=== PATIENT | female | born 1940 | race Caucasian/White ===

== ENCOUNTER 2017-09-07 10:44 | Emergency (ER) | payer MEDICARE ==
[2017-09-07] MEDS ORDERED: Ketorolac Tromethamine 30 MG/ML VIAL ONE (13:27)
== END 2017-09-07 13:57 | disposition home or self-care (01) ==
LOC: ERS 10:44
DX: B02.9 Zoster without complications (principal); I10 Essential (primary) hypertension; K58.9 Irritable bowel syndrome, unspecified; F32.9 Major depressive disorder, single episode, unspecified
CPT/HCPCS: 96372; J1885

== ENCOUNTER 2017-12-27 11:36 | Emergency (ER) | payer MEDICARE ==
--- NOTE | 2017-12-27 12:47 | RAD ---
2 VIEWS CHEST: Date: 12/27/17 HISTORY: Cough x1 week. COMPARISON: 05/11/12. FINDINGS: Normal cardiac silhouette. Pulmonary vessels and hilum are normal. Costophrenic angles are clear. Hyp erinflation. Chronic changes are suspected, without consolidation or mass. No pneumothorax or osseous abnormalities. IMPRESSION: No acute cardiopulmonary process. POS: H
== END 2017-12-27 12:37 | disposition home or self-care (01) ==
LOC: ERS 11:36
DX: J18.9 Pneumonia, unspecified organism (principal); I10 Essential (primary) hypertension; F32.9 Major depressive disorder, single episode, unspecified
CPT/HCPCS: 71046; 87804

== ENCOUNTER 2018-01-02 13:46 | Inpatient (IN) | payer MEDICARE ==
--- NOTE | 2018-01-02 14:35 | RAD ---
CHEST 1 VIEW: HISTORY: Cough. COMPARISON: Chest radiograph 05/11/12. FINDINGS: There is a right basilar airspace opacity. The image is limited due to leftward rotation. There is also left basilar opacity and obscuration of left hemidiaphragm. No pneumothorax. IMPRESSION: Findings suggesting bilateral lower lobe pneumonia which is new from the comparison examination. Fol lowup recommended. POS: [facility]
[2018-01-02 14:42] LABS: Mean Corpuscular HGB CONC 32.6 g/dL (32.0-36.0); Mean Corpuscular Hemoglobin 30.3 pg (27.0-31.0); Mean Corpuscular Volume 92.9 fl (81.0-99.0); Platelet Count 290 thou/uL (130-400); Red Blood Cell (RBC) Count 4.29 mill/uL (4.20-5.40); White Blood Cell (WBC) Count 16.9 thou/uL (4.8-10.8)
[2018-01-02 15:05] LABS: ALT (SGPT) 26 U/L (8-55); AST (SGOT) 26 U/L (5-34); Albumin 3.1 g/dL (3.4-4.8); Alkaline Phosphatase 56 U/L (40-150); Anion Gap 13 mmol/L (10-20); BUN (Urea Nitrogen) 15 mg/dL (9.8-20.1); Bilirubin, Total 0.5 mg/dL (0.2-1.2); Calc. Creatinine Clearance 0 mL/min (70-130); Calcium 8.7 mg/dL (7.8-10.44); Carbon Dioxide 27 mmol/L (23-31); Chloride 98 mmol/L (98-107); Estimated GFR-MDRD 70; Globulin 3.1 g/dL (2.4-3.5); Glucose 239 mg/dL (83-110); Lipase 16 U/L (8-78); Magnesium 1.9 mg/dL (1.6-2.6); Protein, Total 6.2 g/dL (6.0-8.3); Sodium 134 mmol/L (136-145)
[2018-01-02 15:07] LABS: CKMB 1.1 ng/mL (0-6.6)
[2018-01-02 15:11] LABS: Band 12 % (5-11); Lymphocytes 1 % (21-51); MDiff Complete? YES; Monocytes 3 % (0-10); Neutrophil 84 % (42-75); PLT Morphology Comment Appears Adequate
[2018-01-02] MEDS ORDERED: Azithromycin 500 MG VIAL ONE (15:28)
[2018-01-02] MEDS ORDERED: cefTRIAXone\\ROCEPHIN 2 GM VIAL ONE (15:29)
[2018-01-02 15:37] LABS: Bilirubin Small (Negative); Blood, Urine Negative (Negative); Clarity CLOUDY (Clear); Glucose, Urine (Dipstick) Negative (Negative); Leukocyte Small (Negative); Nitrite Negative (Negative); Protein, Urine (Dipstick) 30 mg/dL (Neg-Trace); Specific Gravity, Urine 1.028 (1.002-1.036)
[2018-01-02 15:40] LABS: Bacteria/HPF None Seen HPF (None Seen); Pathc Cast-AUWi Flag 1.59 (0-2.49)
[2018-01-02 15:52] LABS: Hyaline Casts/LPF 0-3 HYALINE CAST LPF (0-3 Hyaline); Renal Epithelial None Seen HPF (0-3); Transitional Epithelial NONE SEEN HPF (0-3)
[2018-01-02] MEDS ORDERED: Cefepime 2 GM, Syringe 2.5 ML in Sodium Chloride 0.9% 10 ML SLOW IVP SCH (16:15)
[2018-01-02] MEDS ORDERED: Ondansetron ODT 4 MG TAB PO PRN (16:21)
[2018-01-02] MEDS ORDERED: Milk Of Magnesia 30 ML UDCUP PO PRN (16:21)
[2018-01-02] MEDS ORDERED: Calcium Carbonate 500 MG ChewTAB PO PRN (16:21)
[2018-01-02] MEDS ORDERED: Loperamide HCl 2 MG CAP PO PRN (16:21)
[2018-01-02] MEDS ORDERED: Ondansetron PF 4 MG/2 ML Vial IVP PRN (16:21)
[2018-01-02] MEDS ORDERED: Senokot 8.6 MG TAB PO PRN ×2 (16:21→23:09)
[2018-01-02] MEDS ORDERED: Nitroglycerin 0.4 MG TAB (25 Tab Bottle) PO PRN (16:26)
[2018-01-02] MEDS ORDERED: Cefepime 2 GM in Sodium Chloride 0.9% 100 ML IVPB SCH (16:30)
[2018-01-02] MEDS ORDERED: Acetaminophen 500 MG TAB ONE (16:49)
[2018-01-02 18:00] LABS: Troponin I 0.076 ng/mL (< 0.028)
--- NOTE | 2018-01-02 18:18 | HP ---
DATE OF ADMISSION: 01/02/2018 PRIMARY CARE PHYSICIAN: Dr. Barnes. CHIEF COMPLAINT: Cough and shortness of breath. HISTORY OF PRESENT ILLNESS: The patient is a 77-year-old female, who presented to the emergency room approximately 1 week ago with fever, measuring up to 102-103 degree along with cough and congestion of 1 week duration. She had several family members who were recently sick. She also complained of c ough productive of thick whitish phlegm. She felt generally weak and fatigued. She was started on a zithromycin and Medrol Dosepak and was subsequently discharged. However, her symptoms progressively got worse for which she presented to the emergency room. Chest x-ray today showed bilateral lower lo be pneumonia when compared to last week. She received cefepime and Levaquin in the emergency room. She also complains of generalized maculopapular rash that started over the last 2 days. She thinks i t may have been started by azithromycin. PAST MEDICAL HISTORY: 1. Depression: 2. History of gestational diabetes. 3. Hypertension. PAST SURGICAL HISTORY: 1. Appendectomy. 2. Hysterectomy. ALLERGIES: PENICILLIN, SULFA, CODEINE, and possible AZITHROMYCIN. CURRENT HOME MEDICATIONS: The patient is unable to recall all of her home medications. She takes li sinopril, Prozac, and Protonix. FAMILY HISTORY: Negative for premature coronary artery disease. SOCIAL HISTORY: She currently lives at home with her . No smoking, alcohol or drug use. She makes her own decision with the help of her . She is FULL CODE. REVIEW OF SYSTEMS: The following complete review of systems was negative, unless otherwise mentioned in the HPI or below: Constitutional: Weight loss or gain, ability to conduct usual activities. Sk in: Rash, itching. Eyes: Double vision, pain. ENT/Mouth: Nose bleeding, neck stiffness, pain, te nderness. Cardiovascular: Palpitations, dyspnea on exertion, orthopnea. Respiratory: Shortness of breath, wheezing, cough, hemoptysis, fever or night sweats. Gastrointestinal: Poor appetite, abdom inal pain, heartburn, nausea, vomiting, constipation, or diarrhea. Genitourinary: Urgency, frequenc y, dysuria, nocturia. Musculoskeletal: Pain, swelling. Neurologic/Psychiatric: Anxiety, depressio n. Allergy/Immunologic: Skin rash, bleeding tendency. PHYSICAL EXAMINATION: VITAL SIGNS: Showed temperature 98.9, respirations 20, pulse rate of 120 with a blood pressure 126/5 4 with O2 saturation 92% on room air. GENERAL: A 77-year-old female, ill appearing. Feels generally weak. HEENT: Head atraumatic, normocephalic. Sclerae are anicteric. Moist mucous membrane. No oral lesi on except for some erythema over the posterior pharynx. NECK: Supple, no JVD appreciated. No carotid bruit. LUNGS: Showed bibasilar rales and rhonchi. No wheezing appreciated. Lungs were symmetrical. HEART: S1, S2 present. Regular rate and rhythm, tachycardic. No murmur, rubs or gallops. ABDOMEN: Soft, nontender, bowel sounds present. EXTREMITIES: No edema or calf tenderness. NEUROLOGIC: Grossly nonfocal, moves all four extremities. PSYCHIATRIC: Alert, awake, oriented x3. SKIN: Faint maculopapular rash, which is generalized. Per patient report, the rash has improved ove r the last 2 days while on Benadryl. LYMPH NODES: No palpable lymph nodes in the neck. LABORATORY AND X-RAY FINDINGS: CBC showed WBC 16.9 with hemoglobin 13, hematocrit 39.9, platelet cou nt 290 with 12% bandemia. Chemistries showed sodium 134, potassium 4, chloride 98, bicarbonate 27, B UN 15, creatinine 0.8, glucose of 239. Lactic acid 2.4. Troponin was 0.030. CK-MB was 1.1. Influenza testing was negative last week. Chest x-ray by my review as discussed above. Telemetry monitoring by my review showed sinus tachycardia. EKG by my review showed sinus rhythm with left ventricular hypertrophy. IMPRESSION: 1. Sepsis secondary to community-acquired pneumonia. Please note that patient failed outpatient the rapy. 2. Generalized skin rash, probably secondary to allergic reaction to AZITHROMYCIN, improving with an tihistamine. 3. Hypertension. 4. Hyperglycemia, probably secondary to recent steroid use. Rule out diabetes mellitus, type 2. 5. Chronic kidney disease, stage 2. 6. Lactic acidosis, probably secondary to sepsis. 7. Elevated troponins, probably secondary to sinus tachycardia. 8. Hypertensive heart disease on the EKG. 9. Dehydration. PLAN: The patient will be monitored on the telemetry unit due to sepsis with elevated cardiac enzyme s. We will check legionella and strep pneumoniae urinary antigen. The patient will continue Levaqui n and cefepime. If the patient does not show improvement in the next 24 hours, we will consider pulm onary consultation. We will resume home medications once confirmed. IV hydration. Echocardiogram w ill be obtained. We will check hemoglobin A1c. Plan of care was discussed with the patient in detail. She stated understanding.
[2018-01-02 18:26] LABS: Lactic Acid 1.5 mmol/L (0.5-2.2)
[2018-01-02] MEDS ORDERED: Famotidine 20 MG TAB PO SCH (21:00)
[2018-01-02 21:35] LABS: Troponin I 0.086 ng/mL (< 0.028)
[2018-01-02] MEDS: guaiFENesin ER 600 MG TAB PO SCH (22:24)
[2018-01-02] MEDS: Sodium Chloride 0.9% 1,000 ML IV SCH (22:25)
[2018-01-02 23:12] LABS: Legionella Urinary Ag Negative (Negative); Strep pneumo Urine Ag NEGATIVE (NEGATIVE)
[2018-01-03] MEDS: Acetaminophen 325 MG TAB PO PRN ×2 (04:30→21:02)
[2018-01-03] MEDS: Cefepime 2 GM, Syringe 2.5 ML in Sodium Chloride 0.9% 10 ML SLOW IVP SCH ×2 (05:20→17:17)
[2018-01-03] MEDS: Sodium Chloride 0.9% 1,000 ML IV SCH ×2 (05:33→23:12)
[2018-01-03 05:41] LABS: Hemoglobin A1c 5.8 % (4.0-6.0)
[2018-01-03 05:56] LABS: Albumin 2.4 g/dL (3.4-4.8); Anion Gap 12 mmol/L (10-20); BUN (Urea Nitrogen) 10 mg/dL (9.8-20.1); BUN/Creatinine Ratio 14.08; Calc. Creatinine Clearance 69 mL/min (70-130); Calcium 7.7 mg/dL (7.8-10.44); Carbon Dioxide 20 mmol/L (23-31); Chloride 105 mmol/L (98-107); Estimated GFR-MDRD 80; Glucose 148 mg/dL (83-110); Phosphorus 2.7 mg/dL (2.3-4.7); Potassium 3.4 mmol/L (3.5-5.1); Sodium 134 mmol/L (136-145)
[2018-01-03 06:02] LABS: Troponin I 0.071 ng/mL (< 0.028)
[2018-01-03 06:08] LABS: Band 10 % (5-11); Lymphocytes 3 % (21-51); MDiff Complete? YES; Mean Corpuscular HGB CONC 32.7 g/dL (32.0-36.0); Mean Corpuscular Hemoglobin 30.6 pg (27.0-31.0); Mean Corpuscular Volume 93.8 fl (81.0-99.0); Monocytes 1 % (0-10); Neutrophil 86 % (42-75); Platelet Count 213 thou/uL (130-400); RBC Distribution Width 12.1 % (11.5-14.5); Red Blood Cell (RBC) Count 3.91 mill/uL (4.20-5.40); White Blood Cell (WBC) Count 16.5 thou/uL (4.8-10.8)
[2018-01-03] MEDS ORDERED: Aspirin 81 mg Enteric Coated Tablet PO SCH (09:00)
[2018-01-03] MEDS: guaiFENesin ER 600 MG TAB PO SCH ×2 (09:46→21:02)
[2018-01-03] MEDS: Saccharomyces boulardii 250 MG CAP PO SCH (09:48)
[2018-01-03] MEDS ORDERED: hydrALAZINE 20 MG/ML VIAL SLOW IVP PRN (09:55)
[2018-01-03] MEDS ORDERED: FLUoxetine HCl 20 MG CAP PO SCH (10:00)
[2018-01-03] MEDS: diphenhydrAMINE 12.5 MG/5 ML UDCUP PO PRN ×2 (11:59→23:48)
--- NOTE | 2018-01-03 19:09 | CON ---
DATE OF CONSULTATION: 01/03/2018 HISTORY: This patient is a pleasant 77-year-old woman who presented with fevers and chills. The patient has a history of palpitations. She had undergone evaluation by Dr. Mathur. She states on nearly nightly basis, she will notice having rapid palpitations. The patient denies having any chest discomfort. The patient once again was noted to have a rapid heart rate. The patient denies having any chest discomfort. PAST MEDICAL HISTORY 1. Hypertension. 2. Depression. 3. Irritable bowel syndrome. PAST SURGICAL HISTORY: Appendectomy, hysterectomy,and cholecystectomy. ALLERGIES: PENICILLIN, SULFA, CODEINE and AZITHROMYCIN. FAMILY HISTORY: There is a positive family history of coronary artery disease. SOCIAL HISTORY: Nonsmoker. MEDICATIONS: Protonix 1 tablet daily,and lisinopril 20 daily. REVIEW OF SYSTEMS: A 10-point systems is otherwise unremarkable. No history of easy bruising or bleeding, bright red blood per rectum. PHYSICAL EXAMINATION: GENERAL: This is an elderly woman in no acute distress. Blood pressure is 99/ 49. NECK: No jugular venous distention. LUNGS: Have a few crackles in the bases. HEART: Regular rate and rhythm, normal S1, S2, no murmurs. ABDOMEN: Nondistended. EXTREMITIES: Showed no edema. SKIN: Warm and dry. NEUROLOGIC: Nonfocal. VASCULAR: Radial pulses are 2+. LABORATORY DATA: Sodium 134, potassium 3.4, chloride 105, bicarbonate 20, BUN 10, creatinine is 0.71, glucose 148. Troponin is 0.071. Her white blood count 16.5, hemoglobin 12.0, hematocrit 36.7, platelets are 213. Her EKG on admission revealed normal sinus rhythm with a mild left ventricular hypertrophy. Her awake overnight monitor revealed atrial fibrillation/flutter with a rapid ventricular rate. IMPRESSION: 1. Proximal atrial fibrillation/flutter. 2. Pneumonia. 3. Hypertension. 4. Depression. This patient has paroxysmal atrial fibrillation/flutter. The patient has a CHADS-VASc score of 3. The patient will need to be on chronic anticoagulation therapy to lower her thromboembolic risk. The patient has no obvious contraindications. From a cardiac standpoint, we will try to maintain sinus rhythm with beta obdulio therapy. We will switch from Cardizem to Lopressor. We will follow this patient with you through her hospitalization. BO
[2018-01-03] MEDS ORDERED: Potassium Chloride 20 MEQ TAB PO SCH (19:45)
[2018-01-03] MEDS ORDERED: Metoprolol Tartrate 25 MG TAB PO SCH (21:00)
[2018-01-03] MEDS: Apixaban 5 MG TAB PO SCH (21:01)
--- NOTE | 2018-01-03 22:12 | PDOC.PN ---
- Subjective Encounter Start Date: 01/03/18 Encounter Start Time: 20:30 Patient seen and examined. No new complaints. No overnight events. Afib earlier today. Feels slightly better. Some cough - dry - Objective Resuscitation Status: Resuscitation Status FULL:Full Resuscitation MAR Reviewed: Yes Vital Signs & Weight: Vital Signs (12 hours) Temp Pulse Resp BP BP 01/03/18 16:00 100.2 F H 80 18 109/55 L 01/03/18 12:00 99.3 F 85 16 99/49 L Weight Admit Weight 142 lb Weight 142 lb I&O: 01/02/18 01/03/18 01/04/18 06:59 06:59 06:59 Intake Total 993 Output Total 600 Balance 393 Result Diagrams: 01/03/18 04:47 01/03/18 04:47 EKG Reviewed by me: Yes (Tele SR/ Afib earlier) Phys Exam - Physical Examination Constitutional: NAD Neck: no JVD Respiratory: no wheezing, no rhonchi Bibasilar rales, Symmetrical Cardiovascular: RRR, no rub no heaves/pulsations Gastrointestinal: soft, non-tender, no distention, positive bowel sounds Musculoskeletal: no edema Neurological: non-focal, normal sensation, moves all 4 limbs Psychiatric: A&O x 3 Dx/Plan - Plan IMPRESSION: 1. Sepsis secondary to community-acquired pneumonia. 2. New onset Afib with intermittent RVR 3. Hypertension. 4. Impaired glucose tolerance 5. Chronic kidney disease, stage 2. 6. Lactic acidosis, probably secondary to sepsis. 7. Elevated troponins, probably secondary to demand ischemia. 8. Hypertensive heart disease on the EKG. 9. Dehydration. PLAN: * Cardio input appreciated * Anticoag started * Started on betablockers for rate control * Cont Atbx * Cont current meds as below Laboratory Tests 01/02/18 01/02/18 01/03/18 17:08 17:08 04:47 Hemoglobin A1c 5.8 Troponin I Ur L.pneumophila Ag Negative Ur Strep pneumoniae Ag NEGATIVE 01/03/18 04:47 Hemoglobin A1c Troponin I 0.071 H Ur L.pneumophila Ag Ur Strep pneumoniae Ag Review of Systems - Review of Systems Cardiovascular: negative: chest pain, palpitations, orthopnea, paroxysmal nocturnal dyspnea, edema, light headedness Gastrointestinal: negative: Nausea, Vomiting, Abdominal Pain, Diarrhea, Constipation, Melena, Hematochezia - Medications/Allergies Allergies/Adverse Reactions: Allergies Allergy/AdvReac Type Severity Reaction Status Date / Time azithromycin Allergy Rash Verified 01/03/18 09:51 codeine Allergy Rash Verified 01/03/18 09:51 Penicillins Allergy Verified 01/03/18 09:51 Sulfa (Sulfonamide Allergy Verified 01/03/18 09:51 Antibiotics) BANANAS Allergy Uncoded 01/03/18 09:51 Medications: Current Medications Acetaminophen (Tylenol) 650 mg PO Q4H PRN PRN Reason: Headache/Fever or Pain Last Admin: 01/03/18 21:02 Dose: 650 mg Alprazolam (Xanax) 0.25 mg PO BIDPRN PRN PRN Reason: Anxiety Apixaban (Eliquis) 5 mg PO BID [facility] Last Admin: 01/03/18 21:01 Dose: 5 mg Aspirin (Ecotrin) 81 mg PO DAILY [facility] Last Admin: 01/03/18 09:46 Dose: 81 mg Calcium Carbonate (Tums) 1,000 mg PO Q4H PRN PRN Reason: Heartburn or Indigestion Diltiazem HCl (Cardizem) 30 mg PO Q6HR PRN PRN Reason: HR >120 sustained Last Admin: 01/03/18 17:45 Dose: 30 mg Diphenhydramine HCl (Benadryl) 25 mg PO Q6H PRN PRN Reason: Itching Last Admin: 01/03/18 11:59 Dose: 25 mg Fluoxetine HCl (Prozac) 20 mg PO DAILY [facility] Guaifenesin (Mucinex) 600 mg PO Q12HR [facility] Last Admin: 01/03/18 21:02 Dose: 600 mg Hydralazine HCl (Apresoline) 10 mg SLOW IVP Q4H PRN PRN Reason: SBP Greater Than 180 Levofloxacin 750 mg/ Device 150 mls @ 100 mls/hr IVPB Q24HR@1600 [facility] Last Admin: 01/03/18 17:13 Dose: 150 mls Cefepime HCl 2 gm/ Syringe 2.5 (ml/ Sodium Chloride) 12.5 mls @ 150 mls/hr SLOW IVP 0500,1700 [facility] Last Admin: 01/03/18 17:17 Dose: 12.5 mls Loperamide HCl (Imodium) 2 mg PO PRN PRN PRN Reason: Diarrhea/Loose Stools Magnesium Hydroxide (Milk Of Magnesium) 30 ml PO DAILYPRN PRN PRN Reason: Constipation Metoprolol Tartrate (Lopressor) 25 mg PO BID [facility] Last Admin: 01/03/18 21:01 Dose: 25 mg Nitroglycerin (Nitrostat) 0.4 mg PO Q5MIN PRN PRN Reason: Chest Pain Ondansetron HCl (Zofran Odt) 4 mg PO Q6H PRN PRN Reason: Nausea/Vomiting Ondansetron HCl (Zofran) 4 mg IVP Q6H PRN PRN Reason: Nausea/Vomiting Last Admin: 01/03/18 05:24 Dose: 4 mg Pantoprazole Sodium (Protonix) 40 mg PO DAILY [facility] Last Admin: 01/03/18 09:48 Dose: 40 mg Potassium Chloride (Klor-Con 10) 10 meq PO QA-[facility] Saccharomyces Boulardii (Florastor) 250 mg PO DAILY [facility] Last Admin: 01/03/18 09:48 Dose: 250 mg Senna (Senokot) 2 tab PO HSPRN PRN PRN Reason: Constipation Sodium Chloride (Flush - Normal Saline) 10 ml IVF Q12HR [facility] Last Admin: 01/03/18 21:02 Dose: Not Given Sodium Chloride (Flush - Normal Saline) 10 ml IVF PRN PRN PRN Reason: Saline Flush
[2018-01-03] MEDS: ALPRAZolam 0.25 MG TAB PO PRN (22:31)
[2018-01-04] MEDS ORDERED: Sodium Chloride 0.9% 500 ML IV SCH ×2 (00:45→01:45)
[2018-01-04] MEDS: Cefepime 2 GM, Syringe 2.5 ML in Sodium Chloride 0.9% 10 ML SLOW IVP SCH (04:20)
[2018-01-04] MEDS: Sodium Chloride 0.9% 1,000 ML IV SCH ×4 (04:21→20:59)
[2018-01-04] MEDS: diphenhydrAMINE 12.5 MG/5 ML UDCUP PO PRN ×2 (06:10→15:37)
[2018-01-04 06:17] LABS: Band 28 % (5-11); Hemoglobin 12.4 g/dL (12.0-16.0); Lymphocytes 8 % (21-51); MDiff Complete? YES; Mean Corpuscular HGB CONC 31.9 g/dL (32.0-36.0); Mean Corpuscular Hemoglobin 30.6 pg (27.0-31.0); Mean Platelet Volume 8.8 fL (7.4-10.4); Monocytes 2 % (0-10); Neutrophil 62 % (42-75); Platelet Count 132 thou/uL (130-400); RBC Distribution Width 12.4 % (11.5-14.5); Red Blood Cell (RBC) Count 4.05 mill/uL (4.20-5.40); White Blood Cell (WBC) Count 8.2 thou/uL (4.8-10.8)
[2018-01-04 06:22] LABS: Anion Gap 11 mmol/L (10-20); BUN (Urea Nitrogen) 25 mg/dL (9.8-20.1); Calc. Creatinine Clearance 35 mL/min (70-130); Calcium 7.8 mg/dL (7.8-10.44); Carbon Dioxide 16 mmol/L (23-31); Chloride 111 mmol/L (98-107); Estimated GFR-MDRD 37; Glucose 114 mg/dL (83-110); Magnesium 1.3 mg/dL (1.6-2.6); Potassium 4.1 mmol/L (3.5-5.1); Sodium 134 mmol/L (136-145)
[2018-01-04] MEDS ORDERED: Magnesium 2 GM/NS 0.9% 100 ML 2 GM in Premix Bag 1 BAG IVPB SCH ×2 (07:15→13:45)
[2018-01-04] MEDS ORDERED: predniSONE 20 MG TAB PO SCH (07:15)
[2018-01-04] MEDS ORDERED: Magnesium Sulfate 2 GM in Sodium Chloride 0.9% 100 ML IVPB SCH (07:15)
--- NOTE | 2018-01-04 07:45 | PDOC.EVN ---
Event Note - Event Note Event Note: Overnight RN reported hypotension last night. Started on IV fluids after bolus. Metoprolol was dced by overnight MD.
[2018-01-04] MEDS ORDERED: Potassium Chloride 10 MEQ TAB PO SCH (08:00)
[2018-01-04] MEDS: guaiFENesin ER 600 MG TAB PO SCH ×2 (09:25→20:57)
[2018-01-04] MEDS: Saccharomyces boulardii 250 MG CAP PO SCH (09:25)
[2018-01-04] MEDS: Apixaban 5 MG TAB PO SCH ×2 (09:25→20:56)
[2018-01-04] MEDS: FLUoxetine HCl 20 MG CAP PO SCH (09:25)
--- NOTE | 2018-01-04 11:07 | RAD ---
CHEST 1 VIEW: HISTORY: Shortness of breath, pneumonia. COMPARISON: Radiograph of 01/02/18. FINDINGS: Small effusions. Worsening left basilar airspace opacity. IMPRESSION: Worsening left lower airspace opacity and small effusion suggesting pneumonia. Continued followup is recommended. POS: [facility]
[2018-01-04 11:48] LABS: Anion Gap 11 mmol/L (10-20); BUN (Urea Nitrogen) 28 mg/dL (9.8-20.1); Calc. Creatinine Clearance 34 mL/min (70-130); Calcium 7.7 mg/dL (7.8-10.44); Carbon Dioxide 16 mmol/L (23-31); Chloride 113 mmol/L (98-107); Estimated GFR-MDRD 36; Glucose 166 mg/dL (83-110); Potassium 3.8 mmol/L (3.5-5.1); Sodium 136 mmol/L (136-145)
[2018-01-04 11:51] LABS: Lactic Acid 1.8 mmol/L (0.5-2.2)
[2018-01-04] MEDS ORDERED: Famotidine/PF 20 mg/2ml Vial SLOW IVP SCH (15:00)
[2018-01-04] MEDS: diphenhydrAMINE 12.5 MG/5 ML UDCUP PO SCH (19:40)
--- NOTE | 2018-01-04 20:39 | PDOC.PN ---
- Subjective Encounter Start Date: 01/04/18 Encounter Start Time: 14:30 Patient seen and examined. Overnight events - BP improving. Gen rash worsening - Objective Resuscitation Status: Resuscitation Status FULL:Full Resuscitation MAR Reviewed: Yes Vital Signs & Weight: Vital Signs (12 hours) Temp Pulse Resp BP BP Pulse Ox 01/04/18 19:55 98.5 F 77 18 98/54 L 92 L 01/04/18 16:00 98.5 F 70 24 H 94/47 L 92 L 01/04/18 12:00 98.1 F 70 16 102/49 L 93 L Weight Admit Weight 142 lb Weight 143 lb 1 oz I&O: 01/03/18 01/04/18 01/05/18 06:59 06:59 06:59 Intake Total 993 1650 2220 Output Total 600 400 Balance 393 1650 1820 Result Diagrams: 01/04/18 05:01 01/04/18 11:11 Radiology Reviewed by me: Yes (CXR - Pneumonia left bases) EKG Reviewed by me: Yes (Tele SR) Phys Exam - Physical Examination Constitutional: NAD (Gen rash) Neck: no JVD Respiratory: no wheezing, no rhonchi Bibasilar rales Cardiovascular: RRR, no rub no heaves/pulsations Gastrointestinal: soft, non-tender, no distention, positive bowel sounds Musculoskeletal: no edema Neurological: non-focal, normal sensation, moves all 4 limbs Psychiatric: normal affect, A&O x 3 Dx/Plan - Plan DVT proph w/SCDs IMPRESSION: 1. Hypotension last night - prob due to sepsis/Toprol 2. Worsening Gen rash - prob due to Cefepime 3. Sepsis secondary to community-acquired pneumonia. 4. New onset Afib with intermittent RVR - rate controlled - Anticoag started 5. Hypertension/Chronic kidney disease, stage 2. 6. Lactic acidosis, probably secondary to sepsis. 7. Elevated troponins, probably secondary to demand ischemia. 8. Hypertensive heart disease on the EKG. 9. Dehydration. 10. Impaired glucose tolerance PLAN: * DC Cefepime * Add IV steroids/H1/H2 blockers * Consult Pulmonary * Cardio following * Cont betablockers for rate control - restarted this morning * Cont Atbx * Cont current meds as below Review of Systems - Review of Systems Constitutional: weakness, malaise. negative: fever, chills, sweats Respiratory: Cough. negative: Dry, Shortness of Breath, Hemoptysis, SOB with Excertion, Pleuritic Pain, Sputum, Wheezing Cardiovascular: negative: chest pain, palpitations, orthopnea, paroxysmal nocturnal dyspnea, edema, light headedness, other Gastrointestinal: negative: Nausea, Vomiting, Abdominal Pain, Diarrhea, Constipation, Melena, Hematochezia - Medications/Allergies Allergies/Adverse Reactions: Allergies Allergy/AdvReac Type Severity Reaction Status Date / Time azithromycin Allergy Rash Verified 01/03/18 09:51 codeine Allergy Rash Verified 01/03/18 09:51 Penicillins Allergy Verified 01/03/18 09:51 Sulfa (Sulfonamide Allergy Verified 01/03/18 09:51 Antibiotics) BANANAS Allergy Uncoded 01/03/18 09:51 Medications: Current Medications Acetaminophen (Tylenol) 650 mg PO Q4H PRN PRN Reason: Headache/Fever or Pain Last Admin: 01/03/18 21:02 Dose: 650 mg Alprazolam (Xanax) 0.25 mg PO BIDPRN PRN PRN Reason: Anxiety Last Admin: 01/03/18 22:31 Dose: 0.25 mg Apixaban (Eliquis) 5 mg PO BID [facility] Last Admin: 01/04/18 09:25 Dose: 5 mg Calcium Carbonate (Tums) 1,000 mg PO Q4H PRN PRN Reason: Heartburn or Indigestion Diltiazem HCl (Cardizem) 30 mg PO Q6HR PRN PRN Reason: HR >120 sustained Last Admin: 01/03/18 17:45 Dose: 30 mg Diphenhydramine HCl (Benadryl) 25 mg PO Q6H PRN PRN Reason: Itching Last Admin: 01/04/18 15:37 Dose: 25 mg Diphenhydramine HCl (Benadryl) 25 mg PO Q6HR [facility] Last Admin: 01/04/18 19:40 Dose: Not Given Famotidine (Pepcid) 20 mg PO BID [facility] Fluoxetine HCl (Prozac) 20 mg PO DAILY [facility] Last Admin: 01/04/18 09:25 Dose: 20 mg Guaifenesin (Mucinex) 600 mg PO Q12HR [facility] Last Admin: 01/04/18 09:25 Dose: 600 mg Hydralazine HCl (Apresoline) 10 mg SLOW IVP Q4H PRN PRN Reason: SBP Greater Than 180 Levofloxacin 750 mg/ Device 150 mls @ 100 mls/hr IVPB Q2D@1600 [facility] Sodium Chloride (Normal Saline 0.9%) 1,000 mls @ 100 mls/hr IV .Q10H [facility] Last Admin: 01/04/18 14:17 Dose: 1,000 mls Loperamide HCl (Imodium) 2 mg PO PRN PRN PRN Reason: Diarrhea/Loose Stools Magnesium Hydroxide (Milk Of Magnesium) 30 ml PO DAILYPRN PRN PRN Reason: Constipation Methylprednisolone Sodium Succinate (Solu-Medrol) 40 mg IVP DAILY [facility] Metoprolol Succinate (Toprol Xl) 25 mg PO 2100 [facility] Miscellaneous Medication (Pharmacy To Dose) 1 each IVPB ASDIR [facility] Nitroglycerin (Nitrostat) 0.4 mg PO Q5MIN PRN PRN Reason: Chest Pain Ondansetron HCl (Zofran Odt) 4 mg PO Q6H PRN PRN Reason: Nausea/Vomiting Ondansetron HCl (Zofran) 4 mg IVP Q6H PRN PRN Reason: Nausea/Vomiting Last Admin: 01/03/18 05:24 Dose: 4 mg Pantoprazole Sodium (Protonix) 40 mg PO DAILY [facility] Last Admin: 01/04/18 09:25 Dose: 40 mg Saccharomyces Boulardii (Florastor) 250 mg PO DAILY [facility] Last Admin: 01/04/18 09:25 Dose: 250 mg Senna (Senokot) 2 tab PO HSPRN PRN PRN Reason: Constipation Sodium Chloride (Flush - Normal Saline) 10 ml IVF Q12HR [facility] Last Admin: 01/04/18 09:28 Dose: Not Given Sodium Chloride (Flush - Normal Saline) 10 ml IVF PRN PRN PRN Reason: Saline Flush
--- NOTE | 2018-01-04 20:54 | CON ---
DATE OF CONSULTATION: 01/04/2018 SERVICE: Pulmonary Medicine. REASON FOR CONSULTATION: Pneumonia. HISTORY OF PRESENT ILLNESS: The patient is a 77-year-old white female with past medical history significant for a 4-5 day history of increasing myalgia, malaise, cough, congestion, shortness of breath, and fevers. Ultimately, she presented to her primary care physician. That night; however, she did not have chance to take any medication. She presented to the Emergency Department. At that location, her blood pressures were marginal. She had a liter of fluid and perked up a little bit. She was subsequently put in the hospital with a course of antibiotic. She was placed on cefepime initially, but broke out in a terrible rash. This was from head to toe. It is described below. The cefepime was discontinued for the Levaquin. On the Levaquin, she did pretty well. Last night, she had a hypotensive event. She got 2 liters of fluid overall. This morning, this is the best day that she has had in the last week and half. She is able to get up and walk with physical therapy. She denies any current shortness of breath or chest discomfort. She is not having any dizziness or lightheadedness. Otherwise, she does not have any focalizing infectious symptoms. PAST MEDICAL HISTORY: 1. Major depressive disorder. 2. Type 2 diabetes mellitus. 3. Hypertension. PAST SURGICAL HISTORY: 1. Appendectomy. 2. Hysterectomy. ALLERGIES: PENICILLIN, SULFA, CODEINE, AZITHROMYCIN, CEFEPIME. MEDICATIONS: List of her inpatient medications were reviewed. Multiple updates were made. FAMILY HISTORY: Noncontributory. SOCIAL HISTORY: She lives at home with her . She denies any alcohol or illicit drug use. She has no exposure to chemicals, dusts, asbestos, or tuberculosis. REVIEW OF SYSTEMS: General, head, ears, eyes, nose, throat, cardiovascular, respiratory, GI, , musculoskeletal, neurologic and skin is negative except as mentioned in the HPI. PHYSICAL EXAMINATION: VITAL SIGNS: Afebrile currently. T-max 2 nights ago was 101.1. Last night, she ran a 100.2 fever. Pulse 70, blood pressure 102/49, respirations 24, saturation 92% on room air. GENERAL: The patient is awake, alert, in no apparent distress. LUNGS: Decent air entry bilaterally. There is no prolonged expiratory phase. Crackles are present dependently. Rhonchi there, but clear with cough. HEART: Normal rate, regular. ABDOMEN: Soft, nontender, nondistended. Bowel sounds are positive. MUSCULOSKELETAL: No cyanosis or clubbing. There is trace pitting in the bilateral lower extremities. NEUROLOGIC: Grossly nonfocal. : No [place]. SKIN: She has nonblanching, nonpalpable purpura of the bilateral upper and lower extremities, trunk, head and neck area. Based on what the patient tells me, this is dramatically improved over the last 24 hours. LABORATORY DATA: WBC 16.9, down trending to 8.2. Band count has rebounded to 28% with the addition of steroid. Creatinine 1.43, which is roughly stable and above her baseline on presentation of 0.8. Urinalysis is unremarkable. Strep and legionella urine antigens are unremarkable. C. diff, blood cultures x2 and urine culture remains negative. IMAGING: Chest x-ray demonstrates left pleural parenchymal opacification. Possible effusion is on that side. There is a right-sided atelectasis versus infiltrate as well. Echocardiogram demonstrates diastolic dysfunction. She has a normal ejection fraction. Mild valvular abnormalities are also present. ASSESSMENT: 1. Acute hypoxic respiratory failure, stable. 2. Community-acquired pneumonia. 3. Pleural effusion, possible. 4. Abnormal drug reaction, likely secondary to cefepime. PLAN: I will continue the Levaquin. I will de-escalate her steroids to 40 mg of Solu-Medrol on a daily basis. I will do a 2-view chest x-ray tomorrow to see whether or not this is in fact a pleural effusion. If it is, thoracentesis will be considered. If it is not, she can be transitioned out of the hospital tomorrow morning with a repeat chest x-ray in 4-6 weeks to verify the infiltrate resolved. Pulmonary Critical Care will continue to follow. 70 minutes have been devoted to this patient in various activities. I personally reviewed all imaging studies and laboratory data noted within this document. For fifty percent of this time, I was interacting with the patient at the bedside or coordinating care with the care team. For the remainder of the time I was immediately available to the patient in the hospital unit. BO
[2018-01-04] MEDS ORDERED: Famotidine 20 MG TAB PO SCH (21:00)
[2018-01-05] MEDS: diphenhydrAMINE 12.5 MG/5 ML UDCUP PO SCH ×2 (00:08→08:07)
[2018-01-05] MEDS ORDERED: Cefepime 2 GM, Syringe 2.5 ML in Sodium Chloride 0.9% 10 ML SLOW IVP SCH (05:00)
[2018-01-05] MEDS: Sodium Chloride 0.9% 1,000 ML IV SCH ×2 (07:28→20:54)
[2018-01-05 07:48] LABS: Albumin 2.5 g/dL (3.4-4.8); Anion Gap 9 mmol/L (10-20); BUN (Urea Nitrogen) 32 mg/dL (9.8-20.1); BUN/Creatinine Ratio 28.83; Calc. Creatinine Clearance 47 mL/min (70-130); Calcium 8.2 mg/dL (7.8-10.44); Carbon Dioxide 18 mmol/L (23-31); Chloride 114 mmol/L (98-107); Estimated GFR-MDRD 48; Glucose 160 mg/dL (83-110); Magnesium 2.2 mg/dL (1.6-2.6); Phosphorus 3.6 mg/dL (2.3-4.7); Potassium 4.2 mmol/L (3.5-5.1); Sodium 137 mmol/L (136-145)
[2018-01-05 08:08] LABS: #Lymphocytes 0.3 thou/uL (1.20-3.40); #Monocytes 0.2 thou/uL (0.11-0.59); #Neutrophils 3.5 thou/uL (1.40-6.50); %Basophils 0.7 % (0.0-1.0); %Eosinophils 0.4 % (0.0-10.0); %Monocytes 3.7 % (0.0-10.0); %Neutrophils 87.2 % (42.0-75.0); Hemoglobin 10.6 g/dL (12.0-16.0); Mean Corpuscular HGB CONC 32.2 g/dL (32.0-36.0); Mean Corpuscular Volume 96.4 fl (81.0-99.0); Mean Platelet Volume 8.6 fL (7.4-10.4); PLT Morphology Comment Appears Decreased; Platelet Count 72 thou/uL (130-400); RBC Distribution Width 12.3 % (11.5-14.5); RBC Morphology Normal; Red Blood Cell (RBC) Count 3.43 mill/uL (4.20-5.40)
--- NOTE | 2018-01-05 08:15 | RAD ---
2 VIEW CHEST: Date: 01/05/18 COMPARISON: 01/04/18. INDICATION: History of effusion, shortness of breath. FINDINGS: There is bibasilar opacification compatible with pleural fluid and adjacent atelectasis/pneumonia pre sent. Cardiac silhouette and mediastinal structures are stable. Extensive artifact limits exam. IMPRESSION: Bilateral pleural effusions with adjacent atelectasis and/or pneumonia. Continued follow-up is jennifer reyes. Findings have progressed from the 01/04/18 exam. Correlate clinically. POS: [facility]
[2018-01-05] MEDS: guaiFENesin ER 600 MG TAB PO SCH ×2 (08:31→20:53)
[2018-01-05] MEDS: FLUoxetine HCl 20 MG CAP PO SCH (08:31)
[2018-01-05] MEDS: Saccharomyces boulardii 250 MG CAP PO SCH (08:31)
[2018-01-05 08:51] LABS: Platelet Count 82 thou/uL (130-400)
[2018-01-05 08:54] LABS: Fibrinogen 551 mg/dL (253-463)
[2018-01-05 08:56] LABS: INR-International Normal Ratio 1.7; PTT 29.8 SEC (22.9-36.1); Prothrombin Time 20.2 SEC (12.0-14.7)
[2018-01-05 09:43] LABS: D-Dimer Test Greater than 20.00 *mcg/mL (0.27-0.43)
[2018-01-05] MEDS ORDERED: predniSONE 20 MG TAB PO SCH (10:45)
[2018-01-05 10:59] LABS: FSP-Qualitative ABNORMAL (Normal)
[2018-01-05 11:00] LABS: FSP-Semiquantitative >=40 & <80 mcg/mL (Less than 5)
[2018-01-05 11:07] LABS: Hemoglobin 10.3 g/dL (12.0-16.0); Mean Corpuscular HGB CONC 32.7 g/dL (32.0-36.0); Mean Corpuscular Hemoglobin 30.8 pg (27.0-31.0); Mean Corpuscular Volume 94.4 fl (81.0-99.0); Platelet Count 71 thou/uL (130-400); RBC Distribution Width 12.2 % (11.5-14.5); Red Blood Cell (RBC) Count 3.35 mill/uL (4.20-5.40); White Blood Cell (WBC) Count 4.5 thou/uL (4.8-10.8)
[2018-01-05] MEDS: Apixaban 5 MG TAB PO SCH (11:25)
[2018-01-05 11:54] LABS: Hep C IgG Ab Non-Reactive (NonReactive); Hep C Index 0.16 S/CO (0-0.79)
[2018-01-05 12:03] LABS: Band 21 % (5-11); Burr Cells SLIGHT = 2-5 cells (100X) (0-1/hpf); Lymphocytes 4 % (21-51); MDiff Complete? YES; Metamyelocyte 4 % (0-0); Monocytes 1 % (0-10); Myelocyte 1 % (0-0); Neutrophil 69 % (42-75); PLT Morphology Comment Appears Decreased; Polychromasia SLIGHT = 2-3 cells (100X) (0-2/hpf); Vacuoles SLIGHT
--- NOTE | 2018-01-05 13:00 | PRG ---
DATE OF SERVICE: 01/05/2018 SERVICE: Pulmonary Medicine. INTERVAL HISTORY: The patient is doing fine from a respiratory standpoint. She actually feels much improved today. She denies any chest pain, nausea, vomiting or shortness of breath. Her rash contin ues to clear. PHYSICAL EXAMINATION: VITAL SIGNS: Afebrile, pulse 68, blood pressure 145/81, respirations 16, saturation 93% on room air. GENERAL: The patient is awake, alert, no apparent distress. LUNGS: Decent air entry. Crackles are present. HEART: Normal rate, regular. ABDOMEN: Soft, nontender, nondistended. Bowel sounds are positive. MUSCULOSKELETAL: No cyanosis or clubbing. There is no pitting in the bilateral lower extremities. She continues to have nonpalpable, nonblanching purpura of the bilateral lower extremities, but they are clearly evolving and improving in color. LABORATORY DATA: WBC 4.5, hemoglobin 10.3 and platelets 71,000. INR 1.7, fibrinogen 551. D-dimer i s elevated greater than 20. Creatinine 1.1 and down trending, BUN 32 and bicarbonate 18. Basic meta bolic profile is otherwise unremarkable. Magnesium and phosphorus are normal. Urinalysis is positiv e for 4-6 red blood cells and 7-10 white blood cells. There is small amount of protein. Some hyalin e casts are present. Strep Legionella and urine antigen are unremarkable. C. diff antigen and toxin remains negative. Blood cultures x2 and urine culture are sterile. IMAGING STUDIES: Chest x-ray demonstrates bibasilar interstitial opacifications of the bilateral wilman g hicks. Bilateral pleural effusions are possibly present as well. ASSESSMENT: 1. Acute hypoxic respiratory failure, resolved. 2. Community-acquired pneumonia, possible. 3. 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 4. Pleural effusion. PLAN: We will send a whole bunch of serologies off looking at different etiologies. Clinically, the patient is feeling better. We will put her on prednisone 40 mg daily and taper this way over a adele od of 2 weeks. She will need a repeat chest x-ray in 2-4 weeks in the outpatient setting. If the in filtrate does not go away or progresses, this will prompt a CT scan and possible sampling procedure. She will need to stay inhouse until some of her laboratories are stabilized. Pulmonary or Critical Care will continue to follow.
[2018-01-05 13:34] LABS: ANA Symphony (Qualitative) Negative (Negative); CCP IgG Antibody 2.9 EliAU/mL (<7 Negative); EliA RAS New Method **** NEW METHOD ****; Rheumatoid Factor IgM Antibody 0.7 IU/mL (<3.5 Negative)
[2018-01-05] MEDS: Diabetic Tussin 200 MG/10 ML UDCUP PO PRN ×2 (16:07→22:26)
[2018-01-05] MEDS: predniSONE 20 MG TAB PO SCH (16:07)
[2018-01-05] MEDS: Acetaminophen 325 MG TAB PO PRN (16:07)
[2018-01-05] MEDS: diphenhydrAMINE 12.5 MG/5 ML UDCUP PO PRN (16:08)
[2018-01-05 16:54] LABS: Ref Lab Test Ordered ANTI-HISTONE; Reference Lab Name LABCORP
[2018-01-05 17:16] LABS: Complement-C4 Less than 2.90 mg/dL (15-57)
--- NOTE | 2018-01-05 21:33 | CON ---
DATE OF CONSULTATION: 01/05/2018 REASON FOR CONSULTATION: Respiratory symptoms, skin rash. HISTORY OF PRESENT ILLNESS: A 77-year-old who has a history of type 2 diabetes , depression, and hypertension, who about a week before developed fever and cough. She was seen in the emergency room elsewhere and was given an antimicrobial therapy by oral route and she continued to have symptoms and then she developed this diffuse skin eruption, which is not clear exactly when it developed looks like it was a few days after she started the antibiotic given to her by the other ER physician. After this admission, initial findings included temperature 98.9, respiratory rate 20, pulse rate 120, and a blood pressure 126/54, O2 sat 92%. She appeared unwell. Neck was supple. Lungs with bibasilar inspiratory crackles, but no wheezing. Heart exam was normal. The abdomen soft, nontender, and the remainder of the examination was normal, then she has described rash, which stated that was maculopapular, which was not according to my evaluation of the rash. Initial white cell count 16.9, hemoglobin 13, and platelets 290 with 4% bands. Influenza test was negative. Currently, Ms. Keating feelbonnie still has a lot of skin eruption and has a lot of itching, for which she takes Benadryl. The cough has improved somewhat. No headaches, visual symptoms, sore throat, odynophagia, dysphagia, no toothache, no back pain, no chest pain, no abdominal pain or diarrhea. In genitourinary symptoms, no joint symptoms. PAST MEDICAL HISTORY: Depression, gestational diabetes, hypertension. PAST SURGICAL HISTORY: Appendectomy, hysterectomy. ALLERGIES: PENICILLIN, SULFA DRUGS, AZITHROMYCIN possibly. CURRENT MEDICATIONS: Tylenol, Xanax, Tums, Cardizem, Benadryl, Prozac, Mucinex , Apresoline, levofloxacin, loperamide, magnesium, metoprolol, ondansetron, pantoprazole, prednisone b.i.d., Saccharomyces boulardii. PHYSICAL EXAMINATION:: VITAL SIGNS: Patient's T-max 101.1 the day following admission, she has been afebrile since. Blood pressure 126/63, pulse 79, respirations 20-22, and O2 sat 93%. SKIN: Shows purpuric skin lesions. Nonpalpable, scattered through the body skin extending from the head scant towards the feet. No blistering, no ulcerations. She has areas of confluency in areas, there are more localized and limited. The pelvis and soles do not appear to be involved. No lymphadenopathy. HEENT: Ocular movements conjugate. Sclerae white. Oral cavity normal. No mucosal lesions. NECK: Supple. LUNGS: Symmetric air entry. I could not identify any crackles or wheezing. CARDIOVASCULAR: S1, S2, regular rate. ABDOMEN: Soft, not distended, and nontender. No ascites. No bladder distention. EXTREMITIES: She moves extremities equally. Pulses 1+ in dorsalis pedis. NEUROLOGIC: Cognitive function appears to be intact. LABORATORY DATA: White cell count 16.9 and now is 4.5, platelets are down to 71 ,000, and hemoglobin 10.3, 21% bands. INR 1.7. FDP were elevated. Smear path review was pending at this time. Sodium 134, creatinine is 1.4 which is up from 01/03/2018 and liver profile normal. Albumin 3.1, lactic acid 2.4, glucose 239. Urinalysis with 7-10 wbc's, 30 protein. NICOLE was positive and anti -double-stranded DNA antibody was elevated at 60. Chest x-ray with bibasilar opacification, pleural effusions. Echocardiogram with EF 60%, some diastolic dysfunction. Valves were fine. She has a pathology from an EGD from 12/12/2017 , which showed benign findings. ASSESSMENT: Subacute respiratory illness with cough, pleural effusions, some atelectasis versus infiltrates in basilar regions associated with nonpalpable purpuric skin lesions, thrombocytopenia, and positive [id number]-[id number] DNA in high titer. DISCUSSION: The differential diagnosis includes systemic lupus erythematosus with leukocytoclastic vasculitis, pulmonary involvement. It is less likely the patient has a drug reaction, although those are not ruled out. Some drugs can be associated with auto-antibody formation, but the specificity of the anti- double-stranded DNA for systemic lupus is quite high. We will submit complement levels. We may have to stop antimicrobial therapy and just treat for lupus with immunosuppressive meds, consider Rheumatology consultation. A skin biopsy might confirm the diagnosis of leukocytoclastic vasculitis. MTDD
--- NOTE | 2018-01-05 22:04 | PDOC.PN ---
- Subjective Encounter Start Date: 01/05/18 Encounter Start Time: 16:00 Patient seen and examined. No new complaints. No overnight events. Gen rash improving. Dry cough + - Objective Resuscitation Status: Resuscitation Status FULL:Full Resuscitation MAR Reviewed: Yes Vital Signs & Weight: Vital Signs (12 hours) Temp Pulse Resp BP BP Pulse Ox 01/05/18 20:00 97.7 F 80 19 142/66 H 91 L 01/05/18 16:00 97.0 F L 78 22 H 143/68 H 92 L 01/05/18 12:00 97.5 F L 79 22 H 125/63 94 L Weight Admit Weight 142 lb Weight 151 lb 2.24 oz I&O: 01/04/18 01/05/18 01/06/18 06:59 06:59 06:59 Intake Total 1650 2220 Output Total 700 Balance 1650 1520 Result Diagrams: 01/06/18 04:50 01/06/18 04:50 Additional Labs: Laboratory Tests 01/05/18 01/05/18 01/05/18 08:24 10:58 10:58 PT 20.2 H INR 1.7 APTT 29.8 Fibrinogen 551 H Rheumatoid Factor IgA 16.0 Rheumatoid Factor IgM 0.7 Cycl Citrul Peptide IgG 2.9 NICOLE Screen POSITIVE H Anti-ds DNA IgG Ab 60.0 H Complement C3 Complement C4 Hepatitis C Antibody Non-Reactive 01/05/18 16:26 PT INR APTT Fibrinogen Rheumatoid Factor IgA Rheumatoid Factor IgM Cycl Citrul Peptide IgG NICOLE Screen Anti-ds DNA IgG Ab Complement C3 46.00 L Complement C4 Less than 2.90 L Hepatitis C Antibody Radiology Reviewed by me: Yes (CXR - B/L pleural eff) EKG Reviewed by me: Yes (Tele SR) Phys Exam - Physical Examination Constitutional: NAD Respiratory: no wheezing, no rales, no rhonchi Scat rales at bases Cardiovascular: RRR, no significant murmur, no rub no heaves Gastrointestinal: soft, non-tender, no distention, positive bowel sounds Musculoskeletal: no edema Neurological: non-focal, moves all 4 limbs Psychiatric: A&O x 3 Deviation from normal: Skin - Gen purpuric rash Dx/Plan - Plan DVT proph w/SCDs IMPRESSION: 1. Lupus flare with small vessel vasculitis 2. Sepsis secondary to community-acquired pneumonia. Atbx dced per ID 3. New onset Afib with intermittent RVR - rate controlled - Anticoag held today due to Pancytopenia 4. Pancytopenia due to Lupus flare 5. Hypertension/Chronic kidney disease, stage 2. 6. Lactic acidosis, probably secondary to sepsis. resolved 7. Elevated troponins, probably secondary to demand ischemia. 8. Hypertensive heart disease on the EKG. 9. Dehydration. 10. Impaired glucose tolerance/ Hypotension - prob due to sepsis/Toprol - resolved PLAN: * DC Atbx per ID * Change Steroids to PO * Consult Rhematology per ID recom * Cardio/Pulmonary following * Cont betablockers for rate control * Cont current meds as below * Reduce IV fluids Review of Systems - Review of Systems Constitutional: negative: fever, chills, sweats, weakness, malaise, other Cardiovascular: negative: chest pain, palpitations, orthopnea, paroxysmal nocturnal dyspnea, edema, light headedness, other Gastrointestinal: negative: Nausea, Vomiting, Abdominal Pain, Diarrhea, Constipation, Melena, Hematochezia, Other - Medications/Allergies Allergies/Adverse Reactions: Allergies Allergy/AdvReac Type Severity Reaction Status Date / Time cefepime Allergy Severe Verified 01/05/18 17:35 azithromycin Allergy Rash Verified 01/03/18 09:51 codeine Allergy Rash Verified 01/03/18 09:51 Penicillins Allergy Verified 01/03/18 09:51 Sulfa (Sulfonamide Allergy Verified 01/03/18 09:51 Antibiotics) BANANAS Allergy Uncoded 01/03/18 09:51 Medications: Current Medications Acetaminophen (Tylenol) 650 mg PO Q4H PRN PRN Reason: Headache/Fever or Pain Last Admin: 01/05/18 16:07 Dose: 650 mg Alprazolam (Xanax) 0.25 mg PO BIDPRN PRN PRN Reason: Anxiety Last Admin: 01/03/18 22:31 Dose: 0.25 mg Calcium Carbonate (Tums) 1,000 mg PO Q4H PRN PRN Reason: Heartburn or Indigestion Diltiazem HCl (Cardizem) 30 mg PO Q6HR PRN PRN Reason: HR >120 sustained Last Admin: 01/03/18 17:45 Dose: 30 mg Diphenhydramine HCl (Benadryl) 25 mg PO Q6H PRN PRN Reason: Itching Last Admin: 01/05/18 16:08 Dose: 25 mg Fluoxetine HCl (Prozac) 20 mg PO DAILY [facility] Last Admin: 01/05/18 08:31 Dose: 20 mg Guaifenesin (Mucinex) 600 mg PO Q12HR [facility] Last Admin: 01/05/18 20:53 Dose: 600 mg Guaifenesin (Robitussin Sf) 200 mg PO Q4H PRN PRN Reason: Cough Last Admin: 01/05/18 16:07 Dose: 200 mg Hydralazine HCl (Apresoline) 10 mg SLOW IVP Q4H PRN PRN Reason: SBP Greater Than 180 Sodium Chloride (Normal Saline 0.9%) 1,000 mls @ 100 mls/hr IV .Q10H [facility] Last Admin: 01/05/18 20:54 Dose: 1,000 mls Loperamide HCl (Imodium) 2 mg PO PRN PRN PRN Reason: Diarrhea/Loose Stools Magnesium Hydroxide (Milk Of Magnesium) 30 ml PO DAILYPRN PRN PRN Reason: Constipation Metoprolol Succinate (Toprol Xl) 25 mg PO 2100 [facility] Last Admin: 01/05/18 20:53 Dose: 25 mg Miscellaneous Medication (Pharmacy To Dose) 1 each IVPB ASDIR [facility] Nitroglycerin (Nitrostat) 0.4 mg PO Q5MIN PRN PRN Reason: Chest Pain Ondansetron HCl (Zofran Odt) 4 mg PO Q6H PRN PRN Reason: Nausea/Vomiting Ondansetron HCl (Zofran) 4 mg IVP Q6H PRN PRN Reason: Nausea/Vomiting Last Admin: 01/03/18 05:24 Dose: 4 mg Pantoprazole Sodium (Protonix) 40 mg PO DAILY [facility] Last Admin: 01/05/18 08:31 Dose: 40 mg Prednisone (Prednisone) 20 mg PO BID-WM [facility] Last Admin: 01/05/18 16:07 Dose: 20 mg Senna (Senokot) 2 tab PO HSPRN PRN PRN Reason: Constipation Sodium Chloride (Flush - Normal Saline) 10 ml IVF Q12HR [facility] Last Admin: 01/05/18 20:54 Dose: Not Given Sodium Chloride (Flush - Normal Saline) 10 ml IVF PRN PRN PRN Reason: Saline Flush
[2018-01-05] MEDS: ALPRAZolam 0.25 MG TAB PO PRN (22:26)
[2018-01-06 05:31] LABS: #Lymphocytes 0.5 thou/uL (1.20-3.40); #Monocytes 0.3 thou/uL (0.11-0.59); #Neutrophils 3.3 thou/uL (1.40-6.50); %Basophils 0.2 % (0.0-1.0); %Eosinophils 0.6 % (0.0-10.0); %Lymphocytes 12.2 % (21.0-51.0); %Monocytes 7.6 % (0.0-10.0); %Neutrophils 79.5 % (42.0-75.0); Hemoglobin 9.7 g/dL (12.0-16.0); Mean Corpuscular HGB CONC 32.6 g/dL (32.0-36.0); Mean Corpuscular Hemoglobin 30.7 pg (27.0-31.0); Mean Corpuscular Volume 94.3 fl (81.0-99.0); Mean Platelet Volume 7.9 fL (7.4-10.4); Platelet Count 96 thou/uL (130-400); RBC Distribution Width 12.3 % (11.5-14.5); Red Blood Cell (RBC) Count 3.16 mill/uL (4.20-5.40); White Blood Cell (WBC) Count 4.2 thou/uL (4.8-10.8)
[2018-01-06 05:42] LABS: ALT (SGPT) 34 U/L (8-55); AST (SGOT) 42 U/L (5-34); Albumin 2.5 g/dL (3.4-4.8); Alkaline Phosphatase 46 U/L (40-150); Anion Gap 10 mmol/L (10-20); BUN (Urea Nitrogen) 30 mg/dL (9.8-20.1); Bilirubin, Total 0.4 mg/dL (0.2-1.2); Calc. Creatinine Clearance 51 mL/min (70-130); Calcium 8.1 mg/dL (7.8-10.44); Carbon Dioxide 17 mmol/L (23-31); Chloride 115 mmol/L (98-107); Estimated GFR-MDRD 53; Globulin 2.5 g/dL (2.4-3.5); Glucose 158 mg/dL (83-110); Magnesium 2.3 mg/dL (1.6-2.6); Potassium 4.2 mmol/L (3.5-5.1); Sodium 138 mmol/L (136-145)
[2018-01-06 07:47] LABS: Bilirubin Negative (Negative); Blood, Urine Trace (Negative); Clarity CLEAR (Clear); Glucose, Urine (Dipstick) Negative (Negative); Leukocyte Negative (Negative); Nitrite Negative (Negative); Protein, Urine (Dipstick) 30 mg/dL (Neg-Trace); Specific Gravity, Urine 1.027 (1.002-1.036); Urobilinogen 0.2 mg/dL (0.2-1.0)
[2018-01-06 08:25] LABS: RBC/HPF 0-3 HPF (0-3); Squamous Epithelial 0-3 HPF (0-3)
[2018-01-06 08:26] LABS: Bacteria/HPF None Seen HPF (None Seen); Hyaline Casts/LPF 0-3 HYALINE CAST LPF (0-3 Hyaline); Other Casts/LPF 0-3 WBC CASTS LPF (0-3 Hyaline)
[2018-01-06] MEDS: Sodium Chloride 0.9% 1,000 ML IV SCH ×2 (09:31→14:40)
[2018-01-06] MEDS: predniSONE 20 MG TAB PO SCH ×2 (09:34→17:07)
[2018-01-06] MEDS: guaiFENesin ER 600 MG TAB PO SCH ×2 (09:34→21:35)
[2018-01-06] MEDS: Calcium Carbonate + Vit D 1 TAB PO SCH ×2 (09:34→17:07)
[2018-01-06] MEDS: FLUoxetine HCl 20 MG CAP PO SCH (09:34)
[2018-01-06] MEDS ORDERED: Furosemide 40 MG/4 ML VIAL SLOW IVP SCH (14:00)
--- NOTE | 2018-01-06 14:01 | PRG ---
DATE OF SERVICE: 01/06/2018 SERVICE: Pulmonary Medicine INTERVAL HISTORY: The patient is doing fantastic from a respiratory standpoint. She denies any ches t pain, shortness of breath, fevers or chills. She does have increasing dyspnea on exertion. She al so feels like she has more congestion in her chest. Overall, she feels a little worse today than she did prior. PHYSICAL EXAMINATION: VITAL SIGNS: Afebrile, pulse 79, blood pressure 138/65, respirations 20, saturation 94% on room air. With ambulation; however, she desaturates to the mid 80s. HEENT: Normocephalic, atraumatic. Sclerae are white, conjunctivae pink. Oral mucosa is moist witho ut lesions. LUNGS: Excellent air entry. Dependent crackles are present. There is no prolonged expiratory phase or wheezing present. HEART: Normal rate and regular. ABDOMEN: Soft, nontender, nondistended. Bowel sounds are positive. MUSCULOSKELETAL: No cyanosis or clubbing. There is 2+ pitting in the bilateral lower extremities. NEUROLOGIC: Grossly nonfocal. LABORATORY DATA: WBC 4.2 and stable, hemoglobin 9.7 and dropping by half a gram. Platelets 96,000 [address] nd slightly up trending. Creatinine continues to improve to 1.01, BUN 30, bicarbonate 17, chloride 1 15. Basic metabolic profile is otherwise unremarkable. AST is 42. NICOLE screen is positive, it is in anti-double stranded DNA pattern. C4 is below 2.9. C3 is 46. Hepatitis C is nonreactive. C. diff antigen and toxin are unremarkable. Blood cultures x2 and urine culture are also unremarkable. ASSESSMENT: 1. Acute hypoxic respiratory failure. 2. Vasculitis, possibly drug induced. 3. Systemic lupus erythematosus, suspected. 4. Pleural effusions, bilateral. PLAN: We will continue our steroids. I do think the patient would benefit from outpatient Rheumatol ogy followup. The patient will need to continue the prednisone until that outpatient followup can be arranged. We will repeat a chest x-ray tomorrow morning. I will provide her with a dose of Lasix t his morning. Hopefully, when she stabilizes, she will be ready for transition out of the hospital. Antihistone antibodies are currently pending. If these are positive, it would be consistent with nicolasa g-induced lupus.
--- NOTE | 2018-01-06 23:16 | PDOC.PN ---
- Subjective Encounter Start Date: 01/06/18 Encounter Start Time: 14:00 Patient seen and examined. No new complaints. No overnight events. Gen rash improving - Objective Resuscitation Status: Resuscitation Status FULL:Full Resuscitation MAR Reviewed: Yes Vital Signs & Weight: Vital Signs (12 hours) Temp Pulse Resp BP BP Pulse Ox 01/06/18 20:00 97.5 F L 79 20 152/73 H 92 L 01/06/18 17:31 97.7 F 76 18 166/79 H 94 L 01/06/18 12:00 97.6 F 75 19 169/75 H 94 L Weight Admit Weight 142 lb Weight 151 lb 12.8 oz I&O: 01/05/18 01/06/18 01/07/18 06:59 06:59 06:59 Intake Total 2220 1585 788 Output Total 733 805 8706 Balance 1520 1485 -823 Result Diagrams: 01/06/18 04:50 01/06/18 04:50 EKG Reviewed by me: Yes (Tele SR) Phys Exam - Physical Examination Constitutional: NAD Respiratory: no wheezing, no rhonchi Cardiovascular: RRR, no rub Gastrointestinal: soft, non-tender, positive bowel sounds Musculoskeletal: no edema Neurological: moves all 4 limbs Dx/Plan - Plan DVT proph w/SCDs IMPRESSION: 1. Lupus flare with small vessel vasculitis 2. Sepsis secondary to community-acquired pneumonia. Atbx dced per ID 3. New onset Afib with intermittent RVR - rate controlled - Anticoag on hold due to Pancytopenia 4. Pancytopenia due to Lupus flare 5. Hypertension/Chronic kidney disease, stage 2. 6. Lactic acidosis, probably secondary to sepsis. resolved 7. Elevated troponins, probably secondary to demand ischemia. 8. Hypertensive heart disease on the EKG. 9. Dehydration. 10. Impaired glucose tolerance/ Hypotension - prob due to sepsis/Toprol - resolved PLAN: * Cont Steroids * Rheumatology follow up as outpt * Cardio/Pulmonary following * Cont betablockers for rate control * Cont current meds as below * AM labs . Review of Systems - Review of Systems Respiratory: negative: Cough, Dry, Shortness of Breath, Hemoptysis, SOB with Excertion, Pleuritic Pain, Sputum, Wheezing Cardiovascular: negative: chest pain, palpitations, orthopnea, paroxysmal nocturnal dyspnea, edema, light headedness, other - Medications/Allergies Allergies/Adverse Reactions: Allergies Allergy/AdvReac Type Severity Reaction Status Date / Time cefepime Allergy Severe Verified 01/05/18 17:35 azithromycin Allergy Rash Verified 01/03/18 09:51 codeine Allergy Rash Verified 01/03/18 09:51 Penicillins Allergy Verified 01/03/18 09:51 Sulfa (Sulfonamide Allergy Verified 01/03/18 09:51 Antibiotics) BANANAS Allergy Uncoded 01/03/18 09:51 Medications: Current Medications Acetaminophen (Tylenol) 650 mg PO Q4H PRN PRN Reason: Headache/Fever or Pain Last Admin: 01/05/18 16:07 Dose: 650 mg Albuterol/Ipratropium (Duoneb) 3 ml NEB [id number] PRN PRN Reason: SOB &/or Wheezing Alprazolam (Xanax) 0.25 mg PO BIDPRN PRN PRN Reason: Anxiety Last Admin: 01/05/18 22:26 Dose: 0.25 mg Calcium Carbonate (Tums) 1,000 mg PO Q4H PRN PRN Reason: Heartburn or Indigestion Calcium/Vitamin D (Caltrate 600 + Vit D) 1 tab PO BID-WM [facility] Last Admin: 01/06/18 17:07 Dose: 1 tab Diltiazem HCl (Cardizem) 30 mg PO Q6HR PRN PRN Reason: HR >120 sustained Last Admin: 01/03/18 17:45 Dose: 30 mg Diphenhydramine HCl (Benadryl) 25 mg PO Q6H PRN PRN Reason: Itching Last Admin: 01/05/18 16:08 Dose: 25 mg Fluoxetine HCl (Prozac) 20 mg PO DAILY [facility] Last Admin: 01/06/18 09:34 Dose: 20 mg Guaifenesin (Mucinex) 600 mg PO Q12HR [facility] Last Admin: 01/06/18 21:35 Dose: 600 mg Guaifenesin (Robitussin Sf) 200 mg PO Q4H PRN PRN Reason: Cough Last Admin: 01/05/18 22:26 Dose: 200 mg Hydralazine HCl (Apresoline) 10 mg SLOW IVP Q4H PRN PRN Reason: SBP Greater Than 180 Loperamide HCl (Imodium) 2 mg PO PRN PRN PRN Reason: Diarrhea/Loose Stools Magnesium Hydroxide (Milk Of Magnesium) 30 ml PO DAILYPRN PRN PRN Reason: Constipation Metoprolol Succinate (Toprol Xl) 25 mg PO 2100 [facility] Last Admin: 01/06/18 21:35 Dose: 25 mg Miscellaneous Medication (Pharmacy To Dose) 1 each IVPB ASDIR [facility] Nitroglycerin (Nitrostat) 0.4 mg PO Q5MIN PRN PRN Reason: Chest Pain Ondansetron HCl (Zofran Odt) 4 mg PO Q6H PRN PRN Reason: Nausea/Vomiting Ondansetron HCl (Zofran) 4 mg IVP Q6H PRN PRN Reason: Nausea/Vomiting Last Admin: 01/03/18 05:24 Dose: 4 mg Pantoprazole Sodium (Protonix) 40 mg PO DAILY [facility] Last Admin: 01/06/18 09:34 Dose: 40 mg Prednisone (Prednisone) 20 mg PO BID-WM [facility] Last Admin: 01/06/18 17:07 Dose: 20 mg Senna (Senokot) 2 tab PO HSPRN PRN PRN Reason: Constipation Sodium Chloride (Flush - Normal Saline) 10 ml IVF Q12HR [facility] Last Admin: 01/06/18 21:35 Dose: 10 ml Sodium Chloride (Flush - Normal Saline) 10 ml IVF PRN PRN PRN Reason: Saline Flush
[2018-01-07 06:13] LABS: ALT (SGPT) 35 U/L (8-55); AST (SGOT) 29 U/L (5-34); Albumin 2.9 g/dL (3.4-4.8); Alkaline Phosphatase 48 U/L (40-150); Anion Gap 13 mmol/L (10-20); BUN (Urea Nitrogen) 35 mg/dL (9.8-20.1); Bilirubin, Total 0.5 mg/dL (0.2-1.2); Calc. Creatinine Clearance 47 mL/min (70-130); Calcium 8.7 mg/dL (7.8-10.44); Carbon Dioxide 20 mmol/L (23-31); Chloride 111 mmol/L (98-107); Estimated GFR-MDRD 49; Globulin 2.9 g/dL (2.4-3.5); Glucose 152 mg/dL (83-110); Magnesium 2.4 mg/dL (1.6-2.6); Potassium 4.2 mmol/L (3.5-5.1); Protein, Total 5.8 g/dL (6.0-8.3); Sodium 140 mmol/L (136-145)
[2018-01-07 06:19] LABS: Band 2 % (5-11); Hemoglobin 10.7 g/dL (12.0-16.0); Lymphocytes 9 % (21-51); MDiff Complete? YES; Mean Corpuscular Hemoglobin 30.4 pg (27.0-31.0); Mean Platelet Volume 7.9 fL (7.4-10.4); Monocytes 11 % (0-10); Neutrophil 78 % (42-75); Platelet Count 160 thou/uL (130-400); RBC Distribution Width 12.4 % (11.5-14.5); Red Blood Cell (RBC) Count 3.52 mill/uL (4.20-5.40)
[2018-01-07] MEDS: guaiFENesin ER 600 MG TAB PO SCH ×2 (08:47→21:12)
[2018-01-07] MEDS: Calcium Carbonate + Vit D 1 TAB PO SCH ×2 (08:47→16:06)
[2018-01-07] MEDS: FLUoxetine HCl 20 MG CAP PO SCH (08:47)
[2018-01-07] MEDS: predniSONE 20 MG TAB PO SCH ×2 (08:47→16:06)
[2018-01-07] MEDS ORDERED: Lisinopril 10 MG TAB PO SCH (09:00)
[2018-01-07] MEDS: Apixaban 5 MG TAB PO SCH ×2 (10:12→21:12)
--- NOTE | 2018-01-07 11:51 | RAD ---
TWO VIEW CHEST: HISTORY: Vasculitis. Infiltrate. COMPARISON: 01/05/2018 FINDINGS: Bilateral pleural effusions and bibasilar infiltrates and atelectasis are again noted. There is incr easing interstitial infiltrate in the right upper lung on the current study when compared to the 11/2017 exam. POS: [facility]
--- NOTE | 2018-01-07 13:37 | PDOC.PN ---
- Subjective Encounter Start Date: 01/07/18 Encounter Start Time: 09:00 Patient is seen today, alert and orientede. Discussed with Dr. whittington, plan to discharge home on home oxygen tomorrow. - Objective Resuscitation Status: Resuscitation Status FULL:Full Resuscitation MAR Reviewed: Yes Vital Signs & Weight: Vital Signs (12 hours) Temp Pulse Resp BP BP Pulse Ox 01/07/18 11:56 97.8 F 73 16 165/75 H 95 01/07/18 08:40 97.8 F 73 16 176/79 H 95 01/07/18 05:36 74 18 97 01/07/18 04:00 97.7 F 78 17 151/78 H 92 L Weight Admit Weight 142 lb Weight 148 lb I&O: 01/06/18 01/07/18 01/08/18 06:59 06:59 06:59 Intake Total 1585 1008 Output Total 100 1761 Balance 1485 -753 Result Diagrams: 01/07/18 05:33 01/07/18 05:33 Radiology Reviewed by me: Yes Phys Exam - Physical Examination HEENT: PERRLA, moist MMs Neck: no nodes, no JVD Respiratory: no wheezing, no rales Cardiovascular: RRR, no significant murmur Gastrointestinal: soft, non-tender Musculoskeletal: no edema, pulses present Neurological: non-focal, normal sensation Lymphatic: no nodes Dx/Plan (1) Acute interstitial nephritis Code(s): N10 - ACUTE PYELONEPHRITIS Status: Acute Comment: Patient intially started on Cefepime, which possibly contributed to Interstial nephritis with worseing renal fucntions, pt on Steroids doing well, Improved Renal fcuntions. (2) Acute systemic lupus erythematosus Code(s): M32.9 - SYSTEMIC LUPUS ERYTHEMATOSUS, UNSPECIFIED Status: Acute Comment: Pending AntiHistone Abs, Ds DNA Abs positive with NICOLE too, Continue with Steroids Po, and follow up with Rheumatology as outpartient. (3) COLLIN (acute kidney injury) Code(s): N17.9 - ACUTE KIDNEY FAILURE, UNSPECIFIED Status: Acute Comment: Resolved. Will d/c IV fluids. (4) Acute respiratory failure with hypoxia Code(s): J96.01 - ACUTE RESPIRATORY FAILURE WITH HYPOXIA Status: Acute Comment: Likely from volume overload , Pt on Nasal canula, will d/c with Home oxygen.Continue with PO lasix. (5) Acute pulmonary edema Code(s): J81.0 - ACUTE PULMONARY EDEMA Status: Acute Comment: Continue with PO lasixJhonathan. - Plan cont current plan of care, plan discussed w/ family, PT/OT, adoption social worker, respiratory therapy, incentive spirometry, out of bed/ambulate, DVT proph w/ lovenox * . - Discharge Day Encounter end time: 09:35 Review of Systems - Review of Systems Constitutional: negative: fever, chills, sweats, weakness, malaise, other Eyes: negative: Pain, Vision Change, Conjunctivae Inflammation, Eyelid Inflammation, Redness, Other ENT: negative: Ear Pain, Ear Discharge, Nose Pain, Nose Discharge, Nose Congestion, Mouth Pain, Mouth Swelling, Throat Pain, Throat Swelling, Other Respiratory: negative: Cough, Dry, Shortness of Breath, Hemoptysis, SOB with Excertion, Pleuritic Pain, Sputum, Wheezing Cardiovascular: negative: chest pain, palpitations, orthopnea, paroxysmal nocturnal dyspnea, edema, light headedness, other Gastrointestinal: negative: Nausea, Vomiting, Abdominal Pain, Diarrhea, Constipation, Melena, Hematochezia, Other Genitourinary: negative: Dysuria, Frequency, Incontinence, Hematuria, Retention , Other Musculoskeletal: negative: Neck Pain, Shoulder Pain, Arm Pain, Back Pain, Hand Pain, Leg Pain, Foot Pain, Other - Medications/Allergies Allergies/Adverse Reactions: Allergies Allergy/AdvReac Type Severity Reaction Status Date / Time cefepime Allergy Severe Verified 01/05/18 17:35 azithromycin Allergy Rash Verified 01/03/18 09:51 codeine Allergy Rash Verified 01/03/18 09:51 Penicillins Allergy Verified 01/03/18 09:51 Sulfa (Sulfonamide Allergy Verified 01/03/18 09:51 Antibiotics) BANANAS Allergy Uncoded 01/03/18 09:51 Medications: Current Medications Acetaminophen (Tylenol) 650 mg PO Q4H PRN PRN Reason: Headache/Fever or Pain Last Admin: 01/05/18 16:07 Dose: 650 mg Albuterol/Ipratropium (Duoneb) 3 ml NEB Q2H PRN PRN Reason: SOB &/or Wheezing Last Admin: 01/07/18 05:36 Dose: 3 ml Alprazolam (Xanax) 0.25 mg PO BIDPRN PRN PRN Reason: Anxiety Last Admin: 01/05/18 22:26 Dose: 0.25 mg Apixaban (Eliquis) 5 mg PO BID [facility] Last Admin: 01/07/18 10:12 Dose: 5 mg Calcium Carbonate (Tums) 1,000 mg PO Q4H PRN PRN Reason: Heartburn or Indigestion Calcium/Vitamin D (Caltrate 600 + Vit D) 1 tab PO BID-[facility] Last Admin: 01/07/18 08:47 Dose: 1 tab Diltiazem HCl (Cardizem) 30 mg PO Q6HR PRN PRN Reason: HR >120 sustained Last Admin: 01/03/18 17:45 Dose: 30 mg Diphenhydramine HCl (Benadryl) 25 mg PO Q6H PRN PRN Reason: Itching Last Admin: 01/05/18 16:08 Dose: 25 mg Fluoxetine HCl (Prozac) 20 mg PO DAILY [facility] Last Admin: 01/07/18 08:47 Dose: 20 mg Guaifenesin (Mucinex) 600 mg PO Q12HR [facility] Last Admin: 01/07/18 08:47 Dose: 600 mg Guaifenesin (Robitussin Sf) 200 mg PO Q4H PRN PRN Reason: Cough Last Admin: 01/05/18 22:26 Dose: 200 mg Hydralazine HCl (Apresoline) 10 mg SLOW IVP Q4H PRN PRN Reason: SBP Greater Than 180 Lisinopril (Zestril) 10 mg PO DAILY [facility] Last Admin: 01/07/18 10:12 Dose: 10 mg Loperamide HCl (Imodium) 2 mg PO PRN PRN PRN Reason: Diarrhea/Loose Stools Magnesium Hydroxide (Milk Of Magnesium) 30 ml PO DAILYPRN PRN PRN Reason: Constipation Metoprolol Succinate (Toprol Xl) 25 mg PO 2100 [facility] Last Admin: 01/06/18 21:35 Dose: 25 mg Miscellaneous Medication (Pharmacy To Dose) 1 each IVPB ASDIR [facility] Nitroglycerin (Nitrostat) 0.4 mg PO Q5MIN PRN PRN Reason: Chest Pain Ondansetron HCl (Zofran Odt) 4 mg PO Q6H PRN PRN Reason: Nausea/Vomiting Ondansetron HCl (Zofran) 4 mg IVP Q6H PRN PRN Reason: Nausea/Vomiting Last Admin: 01/03/18 05:24 Dose: 4 mg Pantoprazole Sodium (Protonix) 40 mg PO DAILY [facility] Last Admin: 01/07/18 08:47 Dose: 40 mg Prednisone (Prednisone) 20 mg PO BID-[facility] Last Admin: 01/07/18 08:47 Dose: 20 mg Senna (Senokot) 2 tab PO HSPRN PRN PRN Reason: Constipation Sodium Chloride (Flush - Normal Saline) 10 ml IVF Q12HR [facility] Last Admin: 01/07/18 08:47 Dose: 10 ml Sodium Chloride (Flush - Normal Saline) 10 ml IVF PRN PRN PRN Reason: Saline Flush
[2018-01-07] MEDS ORDERED: Furosemide 40 MG/4 ML VIAL SLOW IVP SCH (15:30)
--- NOTE | 2018-01-07 16:11 | PRG ---
DATE OF SERVICE: 01/07/2018 SERVICE: Pulmonary Medicine. INTERVAL HISTORY: The patient is doing fantastic from a respiratory standpoint. She is breathing a little better today than yesterday. Overnight, she had an episode where she desaturated down to the 70s. She has been on 2 liters nasal cannula and did well. This morning, she is back to breathing co mfortably on 1 liter nasal cannula with an improving saturations. All three of her cell lines have i mproved dramatically. She has more energy today. She is cautiously optimistic. OBJECTIVE: VITAL SIGNS: Afebrile, pulse 73, blood pressure 165/75, respirations 16, saturation 95% on 2 liters nasal cannula. GENERAL: The patient is awake, alert, no apparent distress. LUNGS: Decent air entry. There is no prolonged expiratory phase or wheezing present. HEART: Normal rate, regular. ABDOMEN: Soft, nontender, nondistended. Bowel sounds are positive. MUSCULOSKELETAL: No cyanosis or clubbing. There is still 2+ pitting throughout. : No Cabral. NEUROLOGIC: Grossly nonfocal. LABORATORY DATA: WBC 7.0, hemoglobin 10.7, platelets 160,000 and beautifully rebounding. Bicarbonat e 20, chloride 111. BUN 35, creatinine 1.09. Basic metabolic profile is otherwise unremarkable. An tihistone antibodies are currently pending. IMAGING: Chest x-ray demonstrates bilateral effusions and infiltrates. ASSESSMENT: 1. Acute hypoxic respiratory failure. 2. 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 3. Systemic lupus erythematosus. 4. Pleural effusions with interstitial changes, bilateral. DISCUSSION AND PLAN: Continue steroids and other supportive care. I will provide the patient with a nother dose of Lasix today. Pulmonary Critical Care will continue to follow along, but certainly the patient will need to remain in house until she more clearly turns that corner. We are fast approach ing that. She has continuing to have episodes of desaturation which I think is related to these pleu ral effusions. These should clear up with the steroids, and some Lasix.
[2018-01-08 05:28] LABS: Anion Gap 6 mmol/L (10-20); BUN (Urea Nitrogen) 29 mg/dL (9.8-20.1); Calc. Creatinine Clearance 63 mL/min (70-130); Calcium 8.4 mg/dL (7.8-10.44); Carbon Dioxide 28 mmol/L (23-31); Chloride 111 mmol/L (98-107); Estimated GFR-MDRD 69; Glucose 146 mg/dL (83-110); Potassium 3.9 mmol/L (3.5-5.1); Sodium 141 mmol/L (136-145)
[2018-01-08] MEDS ORDERED: Lisinopril 10 MG TAB PO SCH (08:09)
[2018-01-08] MEDS: Calcium Carbonate + Vit D 1 TAB PO SCH ×2 (09:23→16:23)
[2018-01-08] MEDS: predniSONE 20 MG TAB PO SCH (09:23)
[2018-01-08] MEDS: Apixaban 5 MG TAB PO SCH ×2 (09:23→21:12)
[2018-01-08] MEDS: guaiFENesin ER 600 MG TAB PO SCH ×2 (09:23→21:12)
[2018-01-08] MEDS: FLUoxetine HCl 20 MG CAP PO SCH (09:23)
[2018-01-08] MEDS: Lisinopril 20 MG TAB PO SCH (09:24)
[2018-01-08 14:03] VITALS: BMI 25.9
--- NOTE | 2018-01-08 15:14 | PDOC.PN ---
- Subjective Encounter Start Date: 01/08/18 Encounter Start Time: 15:12 Ms. Keating was seen today in follow-up. She says she is felling better. She is less short of breath. - Objective Resuscitation Status: Resuscitation Status FULL:Full Resuscitation MAR Reviewed: Yes Vital Signs & Weight: Vital Signs (12 hours) Temp Pulse Resp BP BP Pulse Ox 01/08/18 11:54 97.9 F 82 19 156/69 H 93 L 01/08/18 09:20 98.8 F 70 18 93 L 01/08/18 09:18 98.8 F 70 18 159/70 H 93 L 01/08/18 04:00 98.0 F 75 16 151/61 H 92 L Weight Admit Weight 142 lb Weight 146 lb 7 oz I&O: 01/07/18 01/08/18 01/09/18 06:59 06:59 06:59 Intake Total 1008 327 Output Total 1761 600 Balance -753 -600 327 Result Diagrams: 01/07/18 05:33 01/08/18 04:53 Phys Exam - Physical Examination HEENT: PERRLA Respiratory: no wheezing, no rales, no rhonchi, clear to auscultation bilateral Cardiovascular: RRR, no significant murmur, no rub Gastrointestinal: soft, non-tender, no distention, positive bowel sounds Musculoskeletal: no edema + eruption erythematous macular flat rash over most of her legs, and less on the upper extremities Neurological: non-focal Dx/Plan (1) Pneumonia Code(s): J18.9 - PNEUMONIA, UNSPECIFIED ORGANISM Status: Acute (2) Acute interstitial nephritis Code(s): N10 - ACUTE PYELONEPHRITIS Status: Acute Comment: Patient intially started on Cefepime, which possibly contributed to Interstial nephritis with worseing renal fucntions, pt on Steroids doing well, Improved Renal fcuntions. (3) Acute respiratory failure with hypoxia Code(s): J96.01 - ACUTE RESPIRATORY FAILURE WITH HYPOXIA Status: Acute Comment: Likely from volume overload , Pt on Nasal canula, will d/c with Home oxygen.Continue with PO lasix. (4) Acute systemic lupus erythematosus Code(s): M32.9 - SYSTEMIC LUPUS ERYTHEMATOSUS, UNSPECIFIED Status: Acute Comment: Pending AntiHistone Abs, Ds DNA Abs positive with NICOLE too, Continue with Steroids Po, and follow up with Rheumatology as outpartient. - Plan * Acute hypoxic respiratory failure- improved- she is now off supplemental oxygen * SLE with flair and ? vasculitis- improved- Unclear if this was drug induced- Consider Antihistone antiboday test- she will follow-up with [facility] as outpatient. * Acute renal failure from vasculitis- improving * AFIB- her heart rate is controlled on Metoprolol, and she is currently on Eliquis for CVA prophylaxis * Hopefully home tomorrow
[2018-01-08 16:15] LABS: Cytoplasmic (C-ANCA) <1:20 titer (Neg:<1:20); Myeloperoxidase AutoAbs <9.0 U/mL (0.0-9.0); Perinuclear (P-ANCA) <1:20 titer (Neg:<1:20); Proteinase-3 AutoAbs Less than 3.5 U/mL (0.0-3.5)
--- NOTE | 2018-01-08 16:34 | PRG ---
DATE OF SERVICE: 01/08/2018 SERVICE: Pulmonary Medicine. INTERVAL HISTORY: The patient is doing fine from a cardiovascular and respiratory standpoint. She d enies any current chest pain or shortness of breath. She is on room air. She has no specific compla ints of shortness of breath. She walked up and down the hallway today and did quite well without sig nificant dyspnea. That being said, she feels a little bit jittery. She is not quite ready for disch arge from the hospital. OBJECTIVE: VITAL SIGNS: Afebrile, pulse 82, blood pressure 156/69, respirations 19, saturation 93% on room air. GENERAL: The patient is awake and alert. She is in no apparent distress. LUNGS: Decent air entry. There is no prolonged expiratory phase. No wheezing is present. Dependen t crackles are much improved. HEART: Normal rate, regular. ABDOMEN: Soft, nontender, nondistended. Bowel sounds are positive. MUSCULOSKELETAL: No cyanosis or clubbing. There is 2+ pitting in the bilateral lower extremities, w hich is slightly improved. GENITOURINARY: No Cabral. NEUROLOGIC: Grossly nonfocal. LABORATORY DATA: Sodium 141 and up trending gently, chloride 111, creatinine 0.81. Magnesium 2.0. Antihistone antibodies are currently pending. C. diff antigen and toxin are unremarkable as blood cu ltures x2 and urine culture. ASSESSMENT: 1. Acute hypoxic respiratory failure. 2. 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 3. Systemic lupus erythematosus, possibly drug related. 4. Bilateral pleural effusions and bilateral interstitial infiltrates. DISCUSSION AND PLAN: We will continue steroids and other supportive care. The patient can be discha rged from the hospital based on purely pulmonary perspective. I will repeat a chest x-ray in roughly 2 weeks. She will need to go out on prednisone 40 mg on a daily basis and in 2 weeks, if she remain s stable, initiate a taper at that time. Lasix can be continued on an as needed basis into the outpa tient setting. I will repeat another dose of Lasix. It will also be provided tomorrow morning.
[2018-01-08] MEDS ORDERED: Furosemide 40 MG/4 ML VIAL SLOW IVP SCH (17:30)
[2018-01-08] MEDS ORDERED: predniSONE 20 MG TAB PO SCH (17:45)
[2018-01-09 05:29] LABS: Anion Gap 13 mmol/L (10-20); BUN (Urea Nitrogen) 22 mg/dL (9.8-20.1); Calc. Creatinine Clearance 69 mL/min (70-130); Calcium 8.3 mg/dL (7.8-10.44); Carbon Dioxide 27 mmol/L (23-31); Chloride 104 mmol/L (98-107); Estimated GFR-MDRD 78; Glucose 149 mg/dL (83-110); Magnesium 1.9 mg/dL (1.6-2.6); Potassium 3.5 mmol/L (3.5-5.1); Sodium 140 mmol/L (136-145)
[2018-01-09] MEDS ORDERED: Furosemide 40 MG/4 ML VIAL SLOW IVP SCH (06:00)
[2018-01-09] MEDS ORDERED: predniSONE 20 MG TAB PO SCH (08:00)
[2018-01-09] MEDS: Lisinopril 20 MG TAB PO SCH (09:05)
[2018-01-09] MEDS: FLUoxetine HCl 20 MG CAP PO SCH (09:06)
[2018-01-09] MEDS: guaiFENesin ER 600 MG TAB PO SCH (09:06)
[2018-01-09] MEDS: Apixaban 5 MG TAB PO SCH (09:06)
[2018-01-09] MEDS: Calcium Carbonate + Vit D 1 TAB PO SCH (09:06)
--- NOTE | 2018-01-09 11:09 | PDOC.PN ---
- Subjective Encounter Start Date: 01/09/18 Encounter Start Time: 11:08 Ms. Keating was seen today in follow-up. Shedoes not have any complaints this morning. - Objective Resuscitation Status: Resuscitation Status FULL:Full Resuscitation MAR Reviewed: Yes Vital Signs & Weight: Vital Signs (12 hours) Temp Pulse Resp BP BP BP Pulse Ox 01/09/18 09:05 165/70 H 01/09/18 07:32 96.5 F L 51 L 18 165/70 H 94 L 01/09/18 04:00 97.8 F 80 18 161/69 H 97 01/09/18 02:30 60 20 165/74 H 89 L Weight Admit Weight 142 lb Weight 145 lb I&O: 01/08/18 01/09/18 01/10/18 06:59 06:59 06:59 Intake Total 1047 Output Total 600 200 Balance -600 847 Result Diagrams: 01/07/18 05:33 01/09/18 04:54 Phys Exam - Physical Examination HEENT: PERRLA Respiratory: no wheezing, no rales, no rhonchi, clear to auscultation bilateral Cardiovascular: RRR, no significant murmur, no rub Gastrointestinal: soft, non-tender, no distention, positive bowel sounds Musculoskeletal: edema present trace edema, + erythematous macules on the lower exremities Dx/Plan (1) Pneumonia Code(s): J18.9 - PNEUMONIA, UNSPECIFIED ORGANISM Status: Acute (2) Acute interstitial nephritis Code(s): N10 - ACUTE PYELONEPHRITIS Status: Acute Comment: Patient intially started on Cefepime, which possibly contributed to Interstial nephritis with worseing renal fucntions, pt on Steroids doing well, Improved Renal fcuntions. (3) Acute respiratory failure with hypoxia Code(s): J96.01 - ACUTE RESPIRATORY FAILURE WITH HYPOXIA Status: Acute Comment: Likely from volume overload , Pt on Nasal canula, will d/c with Home oxygen.Continue with PO lasix. (4) Acute systemic lupus erythematosus Code(s): M32.9 - SYSTEMIC LUPUS ERYTHEMATOSUS, UNSPECIFIED Status: Acute Comment: Pending AntiHistone Abs, Ds DNA Abs positive with NICOLE too, Continue with Steroids Po, and follow up with Rheumatology as outpartient. - Plan * SLE with lower extremity vasculitis- improved- she will be discharged on Prednisone 40mg * AFIB- her heart rate is stable on Metoprolol, and will continue Eliquis * Stable for discharge home..
[2018-01-09 13:40] VITALS: BP 132/64; TEMP 98
--- NOTE | 2018-01-09 14:08 | DIS ---
DATE OF ADMISSION: 01/02/2018 DATE OF DISCHARGE: 01/09/2018 PRIMARY CARE PHYSICIAN: Dr. Henrique Barnes. DISCHARGE DISPOSITION: Home. PRIMARY DISCHARGE DIAGNOSES: 1. 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 2. Acute hypoxic respiratory failure. 3. Pleural effusions with interstitial changes. 4. Atrial fibrillation, new onset. 5. Acute renal failure from interstitial nephritis, which is resolving. DISCHARGE MEDICATIONS: Include prednisone 40 mg daily for 2 weeks and then taper, Prozac 20 mg daily , Protonix 40 mg daily, metoprolol succinate 25 mg daily, lisinopril 20 mg daily, Eliquis 5 mg twice a day. PROCEDURES DONE DURING ADMISSION: The patient had an echocardiogram in which there was an ejection f raction estimated at 55%-60%. There was normal left atrial and left ventricular size. There was toya e E to A reversal compatible with diastolic dysfunction. CODE STATUS: FULL CODE. ALLERGIES: CEFEPIME, AZITHROMYCIN, CODEINE, PENICILLIN, CEFEPIME, and BANANAS. HOSPITAL COURSE: Ms. Keating is a very pleasant 77-year-old female, who presented to the emergency [facility] with complaints of cough and shortness of breath. Her chest x-ray was significant for bilateral lo wer infiltrates and she was admitted for probable pneumonia. Shortly after being started on antibiot ics, the patient developed an erythematous rash on both of her lower extremities as well as upper ext remities, but worse on the lower extremities. She was seen by Infectious Disease specialist and it w as felt that the rash likely represented a vasculitis. A workup for this was done and it revealed th at she had a positive NICOLE as well as a positive double-stranded DNA, complement levels were low at C3 and 34, and this was consistent with systemic lupus. It is unclear whether or not this is drug jose g herbert and likely this can be further delineated in the outpatient setting with a nail galvanizer and darius moncada an antihistone antibody can be checked at that time, as this was not available on the panel. How ever, she has been instructed to stay off of cefepime, as this could have been the inciting agent. A lso, during her hospital stay, she developed atrial fibrillation with rapid ventricular response, whi ch was newly detected. She was seen by Dr. Carias with Cardiology and started on Eliquis as well a s a low-dose beta obdulio in which she had converted back to sinus. At the time of discharge, she wa s feeling much better. She had completed an antibiotic course and will be discharged home on prednis one for the lupus and vasculitis and to have close outpatient followup with Cardiology, Pulmonology, and a referral for outpatient rheumatology evaluation.
--- NOTE | 2018-01-09 14:41 | PRG ---
DATE OF SERVICE: 01/09/2018 SERVICE: Pulmonary Medicine. INTERVAL HISTORY: The patient is doing fantastic from a respiratory standpoint. Last night, she had a desaturation event once again. She only went down to 89% oxygen this time around. Either way, th is morning, her breathing is back to normal. She has been able to walk around without oxygen, withou t difficulty. She denies any chest pain, nausea, vomiting, fevers or chills overnight. PHYSICAL EXAMINATION: VITAL SIGNS: Afebrile, pulse 72, blood pressure 132/64, respirations 20 and saturation 95% on room a ir. GENERAL: The patient is awake and alert in no apparent distress. LUNGS: Decent air entry. Dependent crackles are minimal. There is improved air entry. The bibasil ar region. HEART: Normal rate and regular. ABDOMEN: Soft, nontender and nondistended. Bowel sounds are positive. MUSCULOSKELETAL: No cyanosis or clubbing. There is 1-2+ pitting in the bilateral lower extremities. NEUROLOGIC: Grossly nonfocal. LABORATORY DATA: Potassium 3.5. Basic metabolic profile, magnesium are otherwise unremarkable ANCA studies are all unremarkable. NICOLE was positive with a double stranded pattern of 60. Antihistone a ntibodies are currently pending. ASSESSMENT: 1. Acute hypoxic respiratory failure. 2. 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 3. Systemic lupus erythematosus, which really did not manifest until after she was in the hospital. 4. Bilateral pleural effusions and bilateral interstitial infiltrates, presumptively associated with her lupus flare and volume overload. DISCUSSION AND PLAN: The patient's oxygen requirements continued to improve. She needs to go out on prednisone on a daily basis. I will see her back in clinic in 2 weeks with a pre-clinic chest x-ray . She will be seeing Rheumatology in the outpatient setting. She will continue using Lasix on an as needed basis when she is out of the hospital. If she remains in house, Pulmonary will continue to joaquin shaw, but my suspicion is she will be discharged today.
--- NOTE | 2018-01-10 20:42 | EKG ---
Test Reason : Blood Pressure : / mmHG Vent. Rate : 090 BPM Atrial Rate : 090 BPM P-R Int : 134 ms QRS Dur : 072 ms QT Int : 332 ms P-R-T Axes : 036 049 054 degrees QTc Int : 406 ms Normal sinus rhythm Possible Left atrial enlargement Left ventricular hypertrophy Cannot rule out Septal infarct , age undetermined Abnormal ECG Confirmed by BETTY VALDEZ ([id number]), online content editor FRANCISCO MONSON ([id number]) on 01/10/2018 8:41:16 PM Referred By: Confirmed By:BETTY VALDEZ
--- NOTE | 2018-01-15 10:29 | PQF ---
TESSIE BRANCH TONI MD [id number] [facility]-282 [id number] CLINICAL DOCUMENTATION CLARIFICATION FORM: POST DISCHARGE Addendum to original discharge summary date: 01/09/2018 TESSIE BRANCH [id number] YOUR INPUT IS NEEDED TO CORRECTLY CODE A DIAGNOSIS FOR YOUR PATIENT. DATE: 01/15/18 ATTN: Dr. Fair Please exercise your independent, professional judgment in responding to the clarification form. Clinical indicators are provided on the bottom of this form for your review Please check appropriate box(s) to clarify if the following diagnoses have been ruled in or ruled out: Sepsis Pneumonia Sepsis [ X] Ruled in diagnosis [ ] Continue to treat [ ] Resolved [ ] Ruled out diagnosis [ ] Cannot rule out diagnosis [ ] Other diagnosis (please specify) [ ] Unable to determine In addition, please specify: Present on Admission (POA): [ X ] Yes [ ] No [ ] Unable to determine Pneumonia [ ] Ruled in diagnosis [ ] Continue to treat [ ] Resolved [ ] Ruled out diagnosis [ ] Cannot rule out diagnosis [ ] Other diagnosis (please specify) [ ] Unable to determine In addition, please specify: Present on Admission (POA): [ X] Yes [ ] No [ ] Unable to determine For continuity of documentation, please document condition throughout progress notes and discharge summary. Thank You. CLINICAL INDICATORS - SIGNS / SYMPTOMS / LABS Per H&P: Sepsis secondary to community acquired pneumonia. Per Hospitalist Progress Notes: Sepsis secondary to pneumonia. RISK FACTORS (per H&P) Sepsis/Pneumonia. TREATMENTS (per H&P) IV Levaquin. IV Cefepime. (This form is maintained as a part of the permanent medical record) 2014 [employer]. All Rights Reserved Michelle [phone] MTDDevante
== END 2018-01-09 14:10 | disposition home or self-care (01) | DRG 871 ==
LOC: ERS 13:46 → ERHOLD 15:57 → 2NO 18:30
PROVIDERS: ADMIT Internal Medicine; ATTEND Internal Medicine
DX: A41.9 Sepsis, unspecified organism (principal); J96.01 Acute respiratory failure with hypoxia; N17.9 Acute kidney failure, unspecified; D61.818 Other pancytopenia; E87.2 Acidosis; I48.0 Paroxysmal atrial fibrillation; M32.13 Lung involvement in systemic lupus erythematosus; E87.70 Fluid overload, unspecified; M32.19 Other organ or system involvement in systemic lupus erythematosus; E86.0 Dehydration; F32.9 Major depressive disorder, single episode, unspecified; I13.10 Hypertensive heart and chronic kidney disease without heart failure, with stage 1 through stage 4 chronic kidney disease, or unspecified chronic kidney disease; N18.2 Chronic kidney disease, stage 2 (mild); Z88.1 Allergy status to other antibiotic agents; Z88.5 Allergy status to narcotic agent; Z88.0 Allergy status to penicillin; Z88.2 Allergy status to sulfonamides; Z79.899 Other long term (current) drug therapy
CPT/HCPCS: 36415; 71045; 71046; 80048; 80053; 80069; 81001; 81003; 81015; 82553; 83036; 83520; 83605; 83690; 83735; 84443; 84484; 85025; 85049; 85060; 85300; 85362; 85379; 85384; 85610; 85730; 86021; 86038; 86160; 86200; 86225; 86803; 87040; 87086; 87324; 87449; 87899; 93005; 93306; 94640; 94760; 96361; 96365; 96375; J0456; J0692; J0696; J1940; J1956; J2405; J2920; J3475; J7506; J7620; S0028

== ENCOUNTER 2018-01-22 12:43 | Outpatient (CLI) | payer MEDICARE ==
--- NOTE | 2018-01-22 14:35 | RAD ---
CHEST PA AND LATERAL: History: 77-year-old female with history of dyspnea. Comparison: 01-07-18 FINDINGS: Decreasing bilateral pleural effusions. Heart size within normal limits. Improving vascular congestio n and interstitial edema. IMPRESSION: Improving vascular congestion and interstitial edema and bilateral pleural effusions from prior study . Continued short term follow up. POS: [facility]
== END 2018-01-22 12:44 | disposition home or self-care (01) ==
LOC: RAD 12:43
PROVIDERS: ATTEND Internal Medicine
DX: R06.00 Dyspnea, unspecified (principal); R09.89 Other specified symptoms and signs involving the circulatory and respiratory systems; R60.0 Localized edema; J90 Pleural effusion, not elsewhere classified
CPT/HCPCS: 71046

== ENCOUNTER 2018-02-06 11:06 | Outpatient (CLI) | payer MEDICARE ==
--- NOTE | 2018-02-06 12:08 | RAD ---
FRONTAL AND LATERAL IMAGING CHEST: 02/06/2018 HISTORY: Dyspnea. COMPARISON: 01/22/2018 FINDINGS: Heart and mediastinal contours are stable. There is no pneumothorax seen. There is an S-shaped scol iotic curvature of the thoracolumbar spine. There are mild increased linear interstitial densities i n both lung bases, left greater than right. Aeration has improved significantly within the right wilman g base. In addition, there is improved aeration within the left base. There is probable mild residu al pleural fluid on the left, improved. IMPRESSION: Interval improvement in pleural and parenchymal opacity in both lung bases with mild residual left ba silar linear density and pleural fluid. POS: [facility]
== END 2018-02-06 11:07 | disposition home or self-care (01) ==
LOC: RAD 11:06
PROVIDERS: ATTEND Internal Medicine
DX: R06.00 Dyspnea, unspecified (principal); J98.4 Other disorders of lung
CPT/HCPCS: 71046

== ENCOUNTER 2018-03-06 09:31 | Outpatient (CLI) | payer MEDICARE ==
--- NOTE | 2018-03-06 10:51 | RAD ---
CHEST TWO VIEWS: 03/06/2018 HISTORY: Dyspnea. 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 There is marked kyphosis and osteoporosis of the thoracic spine. No evidence of acute intrathoracic abnormalities seen. No evidence of effusi ons, pneumonia, or pneumothorax seen. IMPRESSION: 1. 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 2. Bibasilar areas of stable density, most compatible with bibasilar lung scarring. POS: [facility]
== END 2018-03-06 09:32 | disposition home or self-care (01) ==
LOC: RAD 09:31
PROVIDERS: ATTEND Internal Medicine
DX: R06.00 Dyspnea, unspecified (principal); M81.0 Age-related osteoporosis without current pathological fracture; M40.204 Unspecified kyphosis, thoracic region
CPT/HCPCS: 71046

== ENCOUNTER 2018-03-14 18:33 | Emergency (ER) | payer MEDICARE ==
--- NOTE | 2018-03-14 19:46 | RAD ---
LEFT KNEE FOUR VIEW: 03/14/18 HISTORY: Pain. Fall. COMPARISON: None. FINDINGS: There is mild edema surrounding the knee joint. No acute displaced fracture or malalignment. Moderate sized joint effusion. IMPRESSION: Soft tissue swelling as well as moderate sized joint effusion. Joint effusion is somewhat greater jennifer n what we expected for the amount of degenerative changes. Nonemergent MRI may be beneficial to evalu ate for internal derangement. POS: [facility]
== END 2018-03-14 19:38 | disposition home or self-care (01) ==
LOC: ERS 18:33
DX: S80.02XA Contusion of left knee, initial encounter (principal); K58.9 Irritable bowel syndrome, unspecified; F32.9 Major depressive disorder, single episode, unspecified; I10 Essential (primary) hypertension; W01.0XXA Fall on same level from slipping, tripping and stumbling without subsequent striking against object, initial encounter

== ENCOUNTER 2022-03-06 14:18 | Emergency (ER) | payer MEDICARE ==
[2022-03-06 15:54] LABS: #Basophils 0.1 thou/uL (0.0-0.2); #Eosinphils 0.5 thou/uL (0.0-0.7); #Monocytes 0.9 thou/uL (0.11-0.59); #Neutrophils 4.6 thou/uL (1.40-6.50); %Basophils 1.2 % (0.0-1.0); %Eosinophils 5.8 % (0.0-10.0); %Lymphocytes 24.5 % (21.0-51.0); %Monocytes 11.1 % (0.0-10.0); %Neutrophils 57.4 % (42.0-75.0); Hemoglobin 13.7 g/dL (12.0-16.0); Mean Corpuscular HGB CONC 33.7 g/dL (32.0-36.0); Mean Corpuscular Hemoglobin 31.6 pg (27.0-31.0); Platelet Count 223 thou/uL (130-400); RBC Distribution Width 12.2 % (11.5-14.5); Red Blood Cell (RBC) Count 4.32 mill/uL (4.20-5.40)
[2022-03-06 16:15] LABS: ALT (SGPT) 19 U/L (8-55); AST (SGOT) 28 U/L (5-34); Albumin 4.1 g/dL (3.4-4.8); Alkaline Phosphatase 47 U/L (40-110); Anion Gap 12 mmol/L (10-20); BUN (Urea Nitrogen) 12 mg/dL (9.8-20.1); Bilirubin, Total 0.4 mg/dL (0.2-1.2); Calc. Creatinine Clearance 0 mL/min (70-130); Calcium 9.3 mg/dL (7.8-10.44); Carbon Dioxide 24 mmol/L (23-31); Chloride 108 mmol/L (98-107); Globulin 3.3 g/dL (2.4-3.5); Glucose 82 mg/dL (83-110); Potassium 4.1 mmol/L (3.5-5.1); Protein, Total 7.4 g/dL (5.8-8.1); Sodium 140 mmol/L (136-145)
== END 2022-03-06 18:10 | disposition home or self-care (01) ==
LOC: ERS 14:18
DX: S09.90XA Unspecified injury of head, initial encounter (principal); I10 Essential (primary) hypertension; R29.700 NIHSS score 0; R00.1 Bradycardia, unspecified; W07.XXXA Fall from chair, initial encounter; Z87.19 Personal history of other diseases of the digestive system; Z79.82 Long term (current) use of aspirin; Z79.899 Other long term (current) drug therapy
CPT/HCPCS: 36415; 70450; 80053; 84484; 85025; 93005

== ENCOUNTER 2023-11-26 13:09 | Emergency (ER) | payer MEDICARE | END 2023-11-26 13:17 | disposition left against medical advice (07) | LOC: ERS 13:09 | DX: Z53.21 Procedure and treatment not carried out due to patient leaving prior to being seen by health care provider (principal) ==

== ENCOUNTER 2023-12-18 12:28 | Emergency (ER) | payer MEDICARE ==
[2023-12-18] MEDS ORDERED: Cyclobenzaprine 10 MG TAB ONE (14:02)
[2023-12-18] MEDS ORDERED: Naproxen 500 MG TAB ONE (14:02)
[2023-12-18] MEDS ORDERED: Lidocaine 4% Patch TD SCH (14:30)
[2023-12-19] MEDS ORDERED: LIDOCAINE Patch Removal TOP SCH (02:00)
== END 2023-12-18 14:39 | disposition home or self-care (01) ==
LOC: ERS 12:28
DX: G89.29 Other chronic pain (principal); M54.2 Cervicalgia; M62.838 Other muscle spasm; I10 Essential (primary) hypertension
CPT/HCPCS: 99283

== ENCOUNTER 2024-04-07 13:36 | Outpatient (CLI) | payer MEDICARE ==
[2024-04-07 14:50] LABS: Hematocrit 43.4 % (34.9-44.5); Hemoglobin 14.5 g/dL (12.0-15.5); Mean Corpuscular HGB CONC 33.4 g/dL (32.0-36.0); Mean Corpuscular Hemoglobin 30.8 pg (27.0-33.0); Mean Corpuscular Volume 92.1 fL (81.6-98.3); Mean Platelet Volume 10.8 fL (7.4-10.4); Platelet Count 248 10x3/uL (150-450); RBC Distribution Width 12.9 % (11.5-14.5); Red Blood Cell (RBC) Count 4.71 10x6/uL (3.90-5.03); White Blood Cell (WBC) Count 7.7 10x3/uL (3.5-10.5)
[2024-04-07 14:56] LABS: Anion Gap 14 mmol/L (10-20); BUN (Urea Nitrogen) 17 mg/dL (9.8-20.1); Calc. Creatinine Clearance 0 mL/min (70-130); Calcium 9.8 mg/dL (7.8-10.44); Carbon Dioxide 26 mmol/L (23-31); Chloride 106 mmol/L (98-107); Estimated GFR 68; Glucose 92 mg/dL (83-110); Potassium 4.4 mmol/L (3.5-5.1); Sodium 142 mmol/L (136-145)
== END 2024-04-07 13:37 | disposition home or self-care (01) ==
LOC: LABBT 13:36
PROVIDERS: ATTEND Neurological Surgery
DX: Z01.818 Encounter for other preprocedural examination (principal); M54.12 Radiculopathy, cervical region
CPT/HCPCS: 80048; 85027; 93005; 93010

== ENCOUNTER 2024-04-12 05:48 | Observation (INO) | payer MEDICARE ==
[2024-04-07 14:30] VITALS: BMI 24.5
[2024-04-12] MEDS ORDERED: Promethazine 25 MG TAB PO PRN (06:51)
[2024-04-12] MEDS ORDERED: diphenhydrAMINE 50 MG/ML VIAL IVP PRN (06:51)
[2024-04-12] MEDS ORDERED: Cyclobenzaprine 10 MG TAB PO PRN (06:51)
[2024-04-12] MEDS ORDERED: Milk Of Magnesia 30 ML UDCUP PO PRN (06:51)
[2024-04-12] MEDS ORDERED: Ondansetron PF 4 MG/2 ML Vial IVP PRN (06:51)
[2024-04-12] MEDS ORDERED: traMADol HCl 50 MG TAB PO PRN (06:51)
[2024-04-12] MEDS ORDERED: Morphine 2 MG/ML VIAL SLOW IVP PRN (06:51)
[2024-04-12] MEDS ORDERED: Mag-Al 1200 mg/1200 mg/30 ML UDCUP PO PRN (06:51)
[2024-04-12] MEDS ORDERED: Acetaminophen 325 MG TAB PO PRN (06:51)
[2024-04-12] MEDS ORDERED: Thrombin 5000 UNITS/5 ML VIAL ONE (06:53)
[2024-04-12] MEDS ORDERED: Clindamycin/D5W 900 mg/50 ml Premix Bag ONE (06:53)
[2024-04-12] MEDS ORDERED: cloNIDine 0.1 MG TAB PO PRN (06:56)
[2024-04-12] MEDS ORDERED: Phenylephrine 10 MG/ML VIAL ONE (06:57)
[2024-04-12] MEDS ORDERED: HYDROmorphone 0.5 MG/0.5 ML SYRINGE ONE (06:58)
[2024-04-12] MEDS ORDERED: Famotidine/PF 20 mg/2ml Vial ONE (06:58)
[2024-04-12] MEDS ORDERED: fentaNYL PF 100 MCG/2 ML SYRINGE ONE (07:26)
[2024-04-12] MEDS ORDERED: Lidocaine 1% PF 5 ML VIAL ONE (07:26)
[2024-04-12] MEDS ORDERED: Rocuronium Bromide 10 MG/ML (10ML VIAL) ONE (07:26)
[2024-04-12] MEDS ORDERED: PROPOFOL 20 ML ONE (07:26)
[2024-04-12] MEDS ORDERED: ePHEDrine Sulfate 50 MG/10 ML VIAL ONE (07:45)
[2024-04-12] MEDS ORDERED: Dexamethasone 20 MG/5 ML VIAL ONE (07:53)
[2024-04-12] MEDS ORDERED: Ondansetron PF 4 MG/2 ML Vial ONE (07:53)
[2024-04-12] MEDS ORDERED: SUGAMMADEX SODIUM 200 MG/2 ML VIAL ONE (07:58)
[2024-04-12] MEDS ORDERED: Promethazine HCl 25 MG/ML VIAL IM PRN (08:21)
[2024-04-12] MEDS ORDERED: Ondansetron HCl/PF 4 MG/2 ML Vial IVP PRN (08:21)
[2024-04-12] MEDS: DULoxetine 60 MG CAP PO SCH (10:31)
[2024-04-12] MEDS: Nebivolol HCl 5 MG TAB PO SCH (10:31)
[2024-04-12] MEDS: Isosorbide Mononitrate 30 MG ER.TAB PO SCH (10:31)
[2024-04-12] MEDS: Valsartan 80 MG TAB PO SCH (10:31)
[2024-04-12] MEDS: traMADol HCl 50 MG TAB PO PRN (10:38)
[2024-04-12] MEDS: Sodium Chloride 0.9% 1,000 ML IV SCH (10:47)
[2024-04-12] MEDS: Clindamycin/D5W 900 MG in Premix 1 BAG IVPB SCH (14:33)
[2024-04-12] MEDS: Nitrofurantoin Monohyd/M-Cryst 100 MG CAP PO SCH (19:58)
[2024-04-13] MEDS: Levothyroxine Sodium 25 MCG TAB PO SCH (05:05)
[2024-04-13] MEDS: Cholecalciferol 1,000 UNITS (25 MCG) TAB PO SCH (09:02)
[2024-04-13] MEDS: diphenhydrAMINE 25 MG CAP PO SCH (09:02)
[2024-04-13 12:06] VITALS: BP 113/59; TEMP 98.1
== END 2024-04-13 12:46 | disposition home or self-care (01) ==
LOC: SDC 05:48 → SURG B 10:07
PROVIDERS: ADMIT Neurological Surgery; ATTEND Neurological Surgery
PROC: 0RG20A0 Fusion of 2 or more Cervical Vertebral Joints with Interbody Fusion Device, Anterior Approach, Anterior Column, Open Approach (ICD-10-PCS; principal; 2024-04-12)
PROC: 0RG2070 Fusion of 2 or more Cervical Vertebral Joints with Autologous Tissue Substitute, Anterior Approach, Anterior Column, Open Approach (ICD-10-PCS; 2024-04-12)
DX: M50.122 Cervical disc disorder at C5-C6 level with radiculopathy (principal); M50.123 Cervical disc disorder at C6-C7 level with radiculopathy; Z88.0 Allergy status to penicillin; Z88.1 Allergy status to other antibiotic agents; Z88.2 Allergy status to sulfonamides; Z88.5 Allergy status to narcotic agent; Z91.018 Allergy to other foods
CPT/HCPCS: 20930; 20936; 22551; 22552; 22845; 22853 ×2; 97116; C1713 ×6; J1100; J1170; J2405; J2704; J3490; J7050; S0028; J2371

== ENCOUNTER 2024-10-28 06:34 | Day surgery (SDC) | payer MEDICARE ==
[2024-10-27 11:11] VITALS: BMI 24.3
[~2024-10-28 06:34] MED LIST: Activase 2 MG VIAL FS SCH; EPINEPHrine 0.3 MG in Ophthalmic Irrigation Solution 500 ML IRR SCH
[2024-10-28] MEDS ORDERED: PHENYLephrine 2.5% Ophth Soln 15 ml Bottle ONE (07:03)
[2024-10-28] MEDS ORDERED: Cyclopentolate 1% Opth Drop 2 ML BOT ONE (07:03)
[2024-10-28] MEDS ORDERED: fentaNYL 50 mcg/mL 1 mL Vial ONE (07:16)
[2024-10-28] MEDS ORDERED: PROPOFOL 20 ML ONE (07:16)
[2024-10-28] MEDS ORDERED: Midazolam HCl 2 mg/2 ml Vial ONE (07:17)
[2024-10-28] MEDS ORDERED: Lidocaine 1% PF 5 ML VIAL ONE ×2 (07:18→08:14)
[2024-10-28] MEDS ORDERED: Maxitrol 0.1% Opth Oint 3.5 GM TUBE ONE (08:14)
[2024-10-28] MEDS ORDERED: CEFAZOLIN 1 GM VIAL ONE (08:14)
[2024-10-28] MEDS ORDERED: Triamcinolone 40 MG/ML VIAL ONE (08:14)
[2024-10-28] MEDS ORDERED: Ondansetron PF 4 MG/2 ML Vial ONE (08:14)
[2024-10-28] MEDS ORDERED: Bupivacaine 0.75% 10 ML VIAL ONE (08:14)
[2024-10-28] MEDS ORDERED: Lidocaine 4% PF 5 ML AMP ONE (08:14)
== END 2024-10-28 10:35 | disposition home or self-care (01) ==
LOC: SDC 06:34
PROVIDERS: ATTEND Ophthalmology Retina Specialist
PROC: 08T53ZZ Resection of Left Vitreous, Percutaneous Approach (ICD-10-PCS; principal; 2024-10-28)
DX: H35.63 Retinal hemorrhage, bilateral (principal)
CPT/HCPCS: 67025; 67043; J0171; J0690; J2250; J2405; J2704; J2997; J3010; J3301; J3490